=== PATIENT | male | born 1930 | race Caucasian/White ===

== ENCOUNTER 2018-08-10 05:45 | Emergency (ER) | payer MEDICARE ==
[~2018-08-10] VITALS: Ht 177.8 cm; Wt 65.4 kg
[~2018-08-10 05:45] MED LIST: ASPI-1265 PO; CARV6.253 PO; LEVO150T73 PO; MELO-82 PO; OMEP-84 PO; SIMV10TA2 PO; ZES10T PO
[2018-08-10] MEDS ORDERED: HYDROcodone/acetaminophen 5mg/325mg tablet PO ONE (06:30)
[2018-08-10 07:24] LABS: HEMATOCRIT 36.7 % (42.0-52.0); HEMOGLOBIN 12.1 g/dl (14.0-17.9); MEAN CORPUSCULAR HEMOGLOBIN 30.7 PG (27.0-31.0); MEAN CORPUSCULAR HGB CONC 33.1 % (33.0-36.5); MEAN CORPUSCULAR VOLUME 92.8 FL (78-98); MEAN PLATELET VOLUME 9.5 FL (7.4-10.4); PLATELET COUNT 107 X10'3 (140-440); RED BLOOD COUNT 3.95 X10'6 (4.70-6.10); RED CELL DISTRIBUTION WIDTH 18.2 % (11.5-14.5); WHITE BLOOD COUNT 9.9 X10'3 (4.5-11.0)
[2018-08-10 07:39] LABS: ALANINE AMINOTRANSFERASE 18 U/L (12-78); ALBUMIN 3.6 G/DL (3.4-5.0); ALBUMIN/GLOBULIN RATIO 1.4 (1.1-1.5); ALKALINE PHOSPHATASE 57 IU/L (46-116); ANION GAP 8 (8-16); ASPARTATE AMINO TRANSFERASE 21 U/L (10-37); BILIRUBIN,TOTAL 1.2 MG/DL (0.1-1.0); BLOOD UREA NITROGEN 31 MG/DL (7-18); C-REACTIVE PROTEIN 1.24 MG/DL (0.0-0.5); CALCIUM 8.5 MG/DL (8.5-10.1); CHLORIDE 105 MMOL/L (99-107); CREATININE 1.24 MG/DL (0.60-1.10); GLUCOSE 112 MG/DL (70-104); POTASSIUM 4.5 MMOL/L (3.5-5.1); SODIUM 138 MMOL/L (135-145); TOTAL CARBON DIOXIDE 25.3 MMOL/L (24-32); TOTAL PROTEIN 6.1 G/DL (6.4-8.2); eGFR 55 ML/MIN
[2018-08-10 07:45] LABS: ANISOCYTOSIS 2+; LARGE PLATELETS FEW; PLATELET ESTIMATE DECREASED; TOTAL CELLS COUNTED 100
[2018-08-10] MEDS ORDERED: LIDOcaine 1% w/epiNEPHrine 1:200,000 30ml vial IJ ONE (08:40)
[2018-08-10 09:30] VITALS: BP 119/53
[2018-08-10 09:56] LABS: GLUCOSE,SYNOVIAL FLUID 0 MG/DL
[2018-08-10 10:17] LABS: APPEARANCE,SYNOVIAL FLUID CLOUDY; COLOR,SYNOVIAL FLUID YELLOW; LYMPHOCYTES,SYNOVIAL FLUID 5 % (0-75); NEUTROPHILS,SYNOVIAL FLUID 95 % (0-25); SYN WBC 36000 /CU MM (0-200)
[2018-08-10 10:19] LABS: SYNOVIAL FLUID CRYSTALS QT FEW
[2018-08-10] MEDS ORDERED: dexamethasone sod phosphate 10mg/ml inj IV STA (10:26)
[2018-08-10] MEDS ORDERED: HYDR-4383 PO (10:28)
[2018-08-10] MEDS ORDERED: ketorolac trometh. 30mg/ml inj. IV ONE (10:30)
[2018-08-10 12:21] LABS: SYN RBC 2250 /CU MM (0)
[2018-08-11] MEDS ORDERED: IBRU140T PO (16:22)
== END 2018-08-10 18:07 | disposition home or self-care (01) ==
LOC: ER 05:46
DX: M10.061 Idiopathic gout, right knee (principal); I10 Essential (primary) hypertension; Z91.018 Allergy to other foods; Z79.82 Long term (current) use of aspirin; Z79.899 Other long term (current) drug therapy
CPT/HCPCS: 20610; 36415; 73564; 80053; 82945; 84157; 84550; 85025; 85651; 86140; 87070; 87077; 87186; 89051; 89060; 96374; 96375; 99284; J1100; J1885

== ENCOUNTER 2018-08-11 09:57 | Inpatient (IN) | payer MEDICARE ==
[2018-08-11] VITALS (7 sets, daily range): BP systolic 103–132; BP diastolic 52–75
[~2018-08-11] VITALS: Ht 177.8 cm; Wt 65.4 kg
[~2018-08-11 09:57] MED LIST changes: +HYDR-4383 PO
[2018-08-11] MEDS ORDERED: LIDOcaine 1% 30ml preserv. free vial IJ STA (11:37)
[2018-08-11 13:40] LABS: GLUCOSE,SYNOVIAL FLUID 2 MG/DL; TOTAL PROTEIN,SYNOVIAL FLUID 4.5 GM/DL
[2018-08-11 13:45] LABS: SYNOVIAL FLUID CRYSTALS QT MODERATE
[2018-08-11] MEDS ORDERED: normal saline 1000ml 1,000 ML IV ONE (14:33)
[2018-08-11 14:35] LABS: APPEARANCE,SYNOVIAL FLUID CLOUDY; COLOR,SYNOVIAL FLUID YELLOW; SYN RBC 3500 /CU MM (0); SYN WBC 106500 /CU MM (0-200)
[2018-08-11] MEDS ORDERED: ceFAZolin 1GM/D5W- ADD-VANTAGE 50 ML IV ONE (14:35)
[2018-08-11] MEDS ORDERED: vancomycin/NS 1 GM ADD-VANTAGE 250 ML X 1 DOSE IV ONE (14:45)
[2018-08-11] MEDS ORDERED: morphine 2 MG/ML inj. syringe IV PRN ×2 (14:50)
[2018-08-11] MEDS ORDERED: acetaminophen 325mg tablet PO PRN (14:50)
[2018-08-11] MEDS ORDERED: ondansetron/PF 4mg/2ml inj IV PRN ×2 (14:50→21:00)
[2018-08-11] MEDS ORDERED: mag hydrox/Alum hydrox/simeth 30ml oral suspension PO PRN (14:50)
[2018-08-11] MEDS ORDERED: HYDROcodone/acetaminophen 5mg/325mg tablet PO PRN (14:50)
[2018-08-11] MEDS ORDERED: magnesium hydroxide 30ml (MOM) UD suspension PO PRN (14:50)
[2018-08-11 15:17] LABS: BASOPHILS # (AUTO) 0.2 X10'3 (0-0.2); BASOPHILS % (AUTO) 0.9 % (0-1); EOSINOPHILS % (AUTO) 0 % (0-6); HEMATOCRIT 34.9 % (42.0-52.0); HEMOGLOBIN 12.2 g/dl (14.0-17.9); LYMPHOCYTES # (AUTO) 1.2 X10'3 (1.1-4.8); LYMPHOCYTES % (AUTO) 5.6 % (21-51); MEAN CORPUSCULAR HEMOGLOBIN 32.6 PG (27.0-31.0); MEAN CORPUSCULAR HGB CONC 35.1 % (33.0-36.5); MONOCYTES % (AUTO) 8.9 % (2-12); NEUTROPHILS # (AUTO) 18.8 X10'3 (1.8-7.7); NEUTROPHILS % (AUTO) 84.6 % (42-75); PLATELET COUNT 87 X10'3 (140-440); RED BLOOD COUNT 3.75 X10'6 (4.70-6.10); RED CELL DISTRIBUTION WIDTH 17.3 % (11.5-14.5); WHITE BLOOD COUNT 22.2 X10'3 (4.5-11.0)
[2018-08-11 15:21] LABS: ALANINE AMINOTRANSFERASE 13 U/L (12-78); ALKALINE PHOSPHATASE 51 IU/L (46-116); ANION GAP 14 (8-16); ASPARTATE AMINO TRANSFERASE 9 U/L (10-37); BILIRUBIN,TOTAL 1.1 MG/DL (0.1-1.0); BLOOD UREA NITROGEN 43 MG/DL (7-18); BUN/CREATININE RATIO 26.1 (5.4-32.0); CALCIUM 8.3 MG/DL (8.5-10.1); CHLORIDE 101 MMOL/L (99-107); CREATININE 1.65 MG/DL (0.60-1.10); GLUCOSE 95 MG/DL (70-104); POTASSIUM 4.4 MMOL/L (3.5-5.1); SODIUM 136 MMOL/L (135-145); TOTAL PROTEIN 6.1 G/DL (6.4-8.2); eGFR 40 ML/MIN
[2018-08-11 15:38] LABS: TOTAL CELLS COUNTED 100
[2018-08-11 15:39] LABS: ANISOCYTOSIS 1+; PLATELET ESTIMATE DECREASED
[2018-08-11 15:40] LABS: LARGE PLATELETS FEW
[2018-08-11] MEDS ORDERED: normal saline 1000ML IV soln IV ONE (15:45)
[2018-08-11] MEDS ORDERED: ROPIVAcaine 0.5% (5mg/ml) 30ml vial ONE (16:21)
[2018-08-11] MEDS ORDERED: IBRU140T PO (16:22)
[2018-08-11 16:48] LABS: INR 1.1 INR; PROTHROMBIN TIME 11.1 SECONDS (9.0-12.0)
[2018-08-11] MEDS ORDERED: ringers solution, lacted 1,000 ML IV SCH (20:58)
[2018-08-11] MEDS ORDERED: morphine 4 MG/ML inj SYRINge IV PRN ×2 (21:00)
[2018-08-11] MEDS ORDERED: meperidine/PF 25mg/ml syringe IV PRN ×3 (21:00)
[2018-08-11] MEDS ORDERED: proCHLORperazine 10 MG/2 ml inj IV PRN (21:00)
[2018-08-11] MEDS ORDERED: sevoflurane 250ml liquid IH ONE (21:01)
[2018-08-11] MEDS ORDERED: fentaNYL/PF 50MCG/1 ML 2ML syringe ONE (21:05)
[2018-08-11] MEDS ORDERED: propofol inj 20 ML IV ONE (21:05)
[2018-08-12] VITALS (12 sets, daily range): BP systolic 94–125; BP diastolic 46–69
[2018-08-12] MEDS: dextrose 5%-1/2 normal saline 1,000 ML IV SCH ×2 (04:16→13:18)
[2018-08-12 06:08] LABS: ALBUMIN 2.2 G/DL (3.4-5.0); ANION GAP 11 (8-16); BLOOD UREA NITROGEN 34 MG/DL (7-18); BUN/CREATININE RATIO 27.4 (5.4-32.0); CALCIUM 7.3 MG/DL (8.5-10.1); CHLORIDE 105 MMOL/L (99-107); CREATININE 1.24 MG/DL (0.60-1.10); GLUCOSE 106 MG/DL (70-104); POTASSIUM 4.1 MMOL/L (3.5-5.1); SODIUM 137 MMOL/L (135-145); TOTAL CARBON DIOXIDE 21.4 MMOL/L (24-32); eGFR 55 ML/MIN
[2018-08-12 06:13] LABS: BASOPHILS % (AUTO) 0 % (0-1); EOSINOPHILS # (AUTO) 0.1 X10'3 (0-0.9); EOSINOPHILS % (AUTO) 0.7 % (0-6); HEMATOCRIT 30.4 % (42.0-52.0); HEMOGLOBIN 10.1 g/dl (14.0-17.9); LYMPHOCYTES # (AUTO) 1.1 X10'3 (1.1-4.8); LYMPHOCYTES % (AUTO) 8.7 % (21-51); MEAN CORPUSCULAR HEMOGLOBIN 31.1 PG (27.0-31.0); MEAN CORPUSCULAR HGB CONC 33.2 % (33.0-36.5); MEAN CORPUSCULAR VOLUME 93.7 FL (78-98); MEAN PLATELET VOLUME 10.3 FL (7.4-10.4); MONOCYTES # (AUTO) 1.5 X10'3 (0-0.9); MONOCYTES % (AUTO) 12.4 % (2-12); NEUTROPHILS # (AUTO) 9.6 X10'3 (1.8-7.7); NEUTROPHILS % (AUTO) 78.2 % (42-75); PLATELET COUNT 81 X10'3 (140-440); RED BLOOD COUNT 3.24 X10'6 (4.70-6.10); RED CELL DISTRIBUTION WIDTH 18.2 % (11.5-14.5); WHITE BLOOD COUNT 12.3 X10'3 (4.5-11.0)
[2018-08-12] MEDS: calcium carbonate 500mg chew tablet PO PRN ×3 (08:52→20:43)
[2018-08-12] MEDS: HYDROcodone/acetaminophen 10/325mg tab PO PRN (13:18)
[2018-08-12] MEDS: CefTRIAXone 2gm/D5W 50ml 50 ML IV SCH (13:22)
[2018-08-12] MEDS ORDERED: vancomycin/NS 1 GM ADD-VANTAGE 250 ML IV SCH (16:00)
[2018-08-12] MEDS: atorvastatin 10mg tablet PO SCH (20:33)
[2018-08-13] MEDS: dextrose 5%-1/2 normal saline 1,000 ML IV SCH ×4 (00:10→22:47)
[2018-08-13] MEDS: HYDROcodone/acetaminophen 10/325mg tab PO PRN ×3 (05:05→15:59)
[2018-08-13 06:00] VITALS: BP 122/66
[2018-08-13 06:45] LABS: BASOPHILS % (AUTO) 0.1 % (0-1); EOSINOPHILS # (AUTO) 0.1 X10'3 (0-0.9); HEMATOCRIT 30.9 % (42.0-52.0); HEMOGLOBIN 10.5 g/dl (14.0-17.9); LYMPHOCYTES % (AUTO) 13.6 % (21-51); MEAN CORPUSCULAR HEMOGLOBIN 31.1 PG (27.0-31.0); MEAN CORPUSCULAR HGB CONC 33.9 % (33.0-36.5); MEAN CORPUSCULAR VOLUME 91.7 FL (78-98); MEAN PLATELET VOLUME 10.2 FL (7.4-10.4); MONOCYTES # (AUTO) 0.8 X10'3 (0-0.9); MONOCYTES % (AUTO) 10.7 % (2-12); NEUTROPHILS # (AUTO) 5.3 X10'3 (1.8-7.7); NEUTROPHILS % (AUTO) 74.6 % (42-75); PLATELET COUNT 82 X10'3 (140-440); RED BLOOD COUNT 3.37 X10'6 (4.70-6.10); RED CELL DISTRIBUTION WIDTH 18.2 % (11.5-14.5); WHITE BLOOD COUNT 7.1 X10'3 (4.5-11.0)
[2018-08-13 07:03] LABS: ANION GAP 10 (8-16); BLOOD UREA NITROGEN 25 MG/DL (7-18); BUN/CREATININE RATIO 24.8 (5.4-32.0); CALCIUM 7.6 MG/DL (8.5-10.1); CHLORIDE 103 MMOL/L (99-107); CREATININE 1.01 MG/DL (0.60-1.10); GLUCOSE 112 MG/DL (70-104); POTASSIUM 3.8 MMOL/L (3.5-5.1); SODIUM 135 MMOL/L (135-145); TOTAL CARBON DIOXIDE 21.6 MMOL/L (24-32); eGFR 70 ML/MIN
[2018-08-13] MEDS ORDERED: LEVOTHYROXINE 75 MCG PO SCH (08:00)
[2018-08-13] MEDS ORDERED: non-formulary drug (Omeprazole* (Prilosec*) 1 CAP) PO SCH (08:00)
[2018-08-13] MEDS: naproxen sodium 220mg tablet PO SCH (08:00)
[2018-08-13] MEDS: pantoprazole 40mg Tablet.DR PO SCH (08:21)
[2018-08-13] MEDS: levoTHYROXINE 75mcg tablet PO SCH (08:21)
[2018-08-13] MEDS: lisinopril 5mg tablet PO SCH (08:21)
[2018-08-13] MEDS: CefTRIAXone 2gm/D5W 50ml 50 ML IV SCH (08:21)
[2018-08-13 10:00] VITALS: BP 130/57
[2018-08-13] MEDS: IBRUTINIB 140 MG PO SCH (12:28)
[2018-08-13 18:00] VITALS: BP 147/47
[2018-08-13] MEDS ORDERED: aspirin 81mg tab.chew PO ONE (20:00)
[2018-08-13] MEDS: lactobacillus rhamnosus 10,000 MMU CELLS/CAPSULE PO SCH (20:11)
[2018-08-13] MEDS: atorvastatin 10mg tablet PO SCH (20:11)
[2018-08-13 22:00] VITALS: BP 97/56
[2018-08-14] MEDS: HYDROcodone/acetaminophen 10/325mg tab PO PRN (05:23)
[2018-08-14 06:00] VITALS: BP 130/69
[2018-08-14] MEDS: naproxen sodium 220mg tablet PO SCH (08:00)
[2018-08-14] MEDS ORDERED: aspirin 81mg tab.chew PO SCH (08:30)
[2018-08-14] MEDS: pantoprazole 40mg Tablet.DR PO SCH (09:13)
[2018-08-14] MEDS: levoTHYROXINE 75mcg tablet PO SCH (09:13)
[2018-08-14] MEDS: CefTRIAXone 2gm/D5W 50ml 50 ML IV SCH (09:14)
[2018-08-14] MEDS: lactobacillus rhamnosus 10,000 MMU CELLS/CAPSULE PO SCH (09:15)
[2018-08-14] MEDS: IBRUTINIB 140 MG PO SCH (09:15)
[2018-08-14] MEDS: lisinopril 5mg tablet PO SCH (09:18)
[2018-08-14] MEDS ORDERED: VANCOMYCIN LEVEL IV ONE (15:30)
[2018-08-16] MEDS ORDERED: aspirin 81mg tab.chew PO SCH (08:00)
== END 2018-08-14 13:41 | DRG 871 ==
LOC: ER 09:58 → ED HOLD 14:48 → ORTHO 4S 17:25
PROVIDERS: ADMIT Internal Medicine; ATTEND Family Medicine
PROC: 0S9C3ZZ Drainage of Right Knee Joint, Percutaneous Approach (ICD-10-PCS; 2018-08-11)
PROC: 0S9C40Z Drainage of Right Knee Joint with Drainage Device, Percutaneous Endoscopic Approach (ICD-10-PCS; principal; 2018-08-11 21:01)
PROC: 02HV33Z Insertion of Infusion Device into Superior Vena Cava, Percutaneous Approach (ICD-10-PCS; 2018-08-13)
PROC: B548ZZA Ultrasonography of Superior Vena Cava, Guidance (ICD-10-PCS; 2018-08-13)
DX: A41.9 Sepsis, unspecified organism (principal); N17.0 Acute kidney failure with tubular necrosis; C91.10 Chronic lymphocytic leukemia of B-cell type not having achieved remission; M00.161 Pneumococcal arthritis, right knee; E03.9 Hypothyroidism, unspecified; I12.9 Hypertensive chronic kidney disease with stage 1 through stage 4 chronic kidney disease, or unspecified chronic kidney disease; N18.3 Chronic kidney disease, stage 3 (moderate); B95.3 Streptococcus pneumoniae as the cause of diseases classified elsewhere; E78.5 Hyperlipidemia, unspecified; K21.9 Gastro-esophageal reflux disease without esophagitis; M10.9 Gout, unspecified; R01.1 Cardiac murmur, unspecified; Z88.8 Allergy status to other drugs, medicaments and biological substances; Z79.899 Other long term (current) drug therapy; Z79.82 Long term (current) use of aspirin
CPT/HCPCS: 20610; 36415; 36569; 76937; 80048; 80053; 82945; 83605; 84145; 84157; 84443; 85025; 85610; 85651; 87040; 87070; 89051; 89060; 93005; 97110; 97116; 97162; 97530; 99285; A6449; A7000; G0378; J0690; J0696; J2270; J2704; J2795; J3010; J3370; J3490; J7030; J7120

== ENCOUNTER → 2018-08-25 | Outpatient (CLI) | payer MEDICARE ==
[~2018-08-25] MED LIST changes: -CARV6.253 PO; -HYDR-4383 PO; +IBRU140T PO
[2018-08-25 13:12] VITALS: BP 119/72
== END | disposition home or self-care (01) ==
LOC: ORTHO 13:03
PROVIDERS: ATTEND Nurse Practitioner Family
DX: M00.261 Other streptococcal arthritis, right knee (principal); B95.4 Other streptococcus as the cause of diseases classified elsewhere; M25.461 Effusion, right knee; M85.861 Other specified disorders of bone density and structure, right lower leg; I10 Essential (primary) hypertension; Z96.612 Presence of left artificial shoulder joint; Z79.82 Long term (current) use of aspirin; Z79.899 Other long term (current) drug therapy
CPT/HCPCS: 73560; 99214

== ENCOUNTER 2018-09-02 11:40 | Outpatient (CLI) | payer MEDICARE ==
[2018-09-02 11:54] VITALS: BP 105/68
== END 2018-09-02 12:44 | disposition home or self-care (01) ==
LOC: ORTHO 11:40
PROVIDERS: ATTEND Nurse Practitioner Family
DX: M00.261 Other streptococcal arthritis, right knee (principal); M25.461 Effusion, right knee; I10 Essential (primary) hypertension; Z98.890 Other specified postprocedural states; Z88.8 Allergy status to other drugs, medicaments and biological substances
CPT/HCPCS: 73560; 99213

== ENCOUNTER 2018-09-29 11:11 | Outpatient (CLI) | payer MEDICARE ==
[2018-09-29 11:09] VITALS: BP 92/52
== END 2018-09-29 11:44 | disposition home or self-care (01) ==
LOC: ORTHO 11:11
PROVIDERS: ATTEND Nurse Practitioner Family
DX: M00.261 Other streptococcal arthritis, right knee (principal); M17.11 Unilateral primary osteoarthritis, right knee; M25.461 Effusion, right knee; I10 Essential (primary) hypertension; Z79.82 Long term (current) use of aspirin; Z79.899 Other long term (current) drug therapy; Z91.018 Allergy to other foods
CPT/HCPCS: 73560; 99213

== ENCOUNTER 2018-10-21 11:23 | Outpatient (CLI) | payer MEDICARE ==
[2018-10-21 11:27] VITALS: BP 109/80
== END 2018-10-21 13:00 | disposition home or self-care (01) ==
LOC: ORTHO 11:23
PROVIDERS: ATTEND Nurse Practitioner Family
DX: M00.261 Other streptococcal arthritis, right knee (principal); I10 Essential (primary) hypertension; Z98.890 Other specified postprocedural states; Z96.612 Presence of left artificial shoulder joint; Z88.8 Allergy status to other drugs, medicaments and biological substances
CPT/HCPCS: 73560; 99213

== ENCOUNTER 2018-12-02 11:36 | Outpatient (CLI) | payer MEDICARE ==
[2018-12-02 11:44] VITALS: BP 119/69
== END 2018-12-02 12:36 | disposition home or self-care (01) ==
LOC: ORTHO 11:36
PROVIDERS: ATTEND Orthopaedic Surgery
DX: M17.11 Unilateral primary osteoarthritis, right knee (principal); M25.861 Other specified joint disorders, right knee; I10 Essential (primary) hypertension; Z96.612 Presence of left artificial shoulder joint; Z91.018 Allergy to other foods; Z79.82 Long term (current) use of aspirin; Z79.899 Other long term (current) drug therapy
CPT/HCPCS: 73564; 99213

== ENCOUNTER 2019-04-13 12:39 | Outpatient (CLI) | payer MEDICARE | END 2019-04-13 23:59 | disposition home or self-care (01) | LOC: VAS 12:39 | PROVIDERS: ATTEND Family Medicine | DX: S50.12XA Contusion of left forearm, initial encounter (principal); I11.0 Hypertensive heart disease with heart failure; I50.9 Heart failure, unspecified; Z96.611 Presence of right artificial shoulder joint; Z96.612 Presence of left artificial shoulder joint; X58.XXXA Exposure to other specified factors, initial encounter; Y93.89 Activity, other specified; Y92.89 Other specified places as the place of occurrence of the external cause; Y99.8 Other external cause status | CPT/HCPCS: 71046; 93971 ==

== ENCOUNTER 2019-04-16 09:10 | Emergency (ER) | payer MEDICARE ==
[~2019-04-16] VITALS: Ht 177.8 cm; Wt 54.0 kg
[2019-04-16 10:02] LABS: BASOPHILS % (AUTO) 0.3 % (0-1); LYMPHOCYTES # (AUTO) 1.1 X10'3 (1.1-4.8); MEAN CORPUSCULAR HGB CONC 32.9 g/dL (33.0-36.5); WHITE BLOOD COUNT 6.6 X10'3 (4.5-11.0)
[2019-04-16 10:04] LABS: EOSINOPHILS % (AUTO) 0.2 % (0-6); HEMATOCRIT 32.8 % (42.0-52.0); HEMOGLOBIN 10.8 g/dl (14.0-17.9); LYMPHOCYTES % (AUTO) 16.6 % (21-51); MEAN CORPUSCULAR HEMOGLOBIN 32.1 PG (27.0-31.0); MEAN CORPUSCULAR VOLUME 97.6 FL (78-98); MEAN PLATELET VOLUME 9.2 FL (7.4-10.4); MONOCYTES # (AUTO) 1.5 X10'3 (0-0.9); MONOCYTES % (AUTO) 22.4 % (2-12); NEUTROPHILS % (AUTO) 60.5 % (42-75); PLATELET COUNT 120 X10'3 (140-440); RED BLOOD COUNT 3.36 X10'6 (4.70-6.10)
[2019-04-16 10:16] LABS: ALANINE AMINOTRANSFERASE 73 U/L (12-78); ALBUMIN 3.8 G/DL (3.4-5.0); ALBUMIN/GLOBULIN RATIO 1.5 (1.1-1.5); ALKALINE PHOSPHATASE 90 IU/L (46-116); ANION GAP 10 (8-16); ASPARTATE AMINO TRANSFERASE 29 U/L (10-37); BILIRUBIN,TOTAL 0.9 MG/DL (0.1-1.0); BLOOD UREA NITROGEN 28 MG/DL (7-18); BUN/CREATININE RATIO 16.4 (5.4-32.0); CALCIUM 8.4 MG/DL (8.5-10.1); CHLORIDE 107 MMOL/L (99-107); CREATININE 1.71 MG/DL (0.60-1.10); GLUCOSE 96 MG/DL (70-104); POTASSIUM 4.5 MMOL/L (3.5-5.1); SODIUM 141 MMOL/L (135-145); TOTAL CARBON DIOXIDE 24.4 MMOL/L (24-32); TOTAL PROTEIN 6.3 G/DL (6.4-8.2); eGFR 38 ML/MIN
[2019-04-16 10:47] LABS: LARGE PLATELETS FEW; PLATELET ESTIMATE DECREASED
[2019-04-16 10:49] LABS: OCCULT BLOOD STOOL NEGATIVE (Neg)
[2019-04-16 11:25] VITALS: BP 133/92
== END 2019-04-16 11:12 | disposition home or self-care (01) ==
LOC: ER 09:11
DX: K92.1 Melena (principal); I12.9 Hypertensive chronic kidney disease with stage 1 through stage 4 chronic kidney disease, or unspecified chronic kidney disease; N18.3 Chronic kidney disease, stage 3 (moderate); D63.1 Anemia in chronic kidney disease; Z88.8 Allergy status to other drugs, medicaments and biological substances; Z79.82 Long term (current) use of aspirin; Z79.899 Other long term (current) drug therapy; Z98.890 Other specified postprocedural states
CPT/HCPCS: 36415; 80053; 82272; 85025; 85610; 93005; 99284

== ENCOUNTER 2019-04-21 05:20 | Inpatient (IN) | payer MEDICARE ==
[~2019-04-21] VITALS: Ht 177.8 cm; Wt 67.8 kg
[2019-04-21] VITALS (7 sets, daily range): BP systolic 105–131; BP diastolic 64–81
[2019-04-21] MEDS ORDERED: SUCR1TAB PO (05:56)
[2019-04-21] MEDS ORDERED: FURO20TA4 PO (05:56)
[2019-04-21] MEDS ORDERED: CYCL1DRO2 EACHEYE (05:56)
--- NOTE | 2019-04-21 06:04 | NUR ---
MD AT BEDSIDE FOR EXAM
[2019-04-21 06:07] LABS: ALANINE AMINOTRANSFERASE 110 U/L (12-78); ALBUMIN 3.3 G/DL (3.4-5.0); ALBUMIN/GLOBULIN RATIO 1.4 (1.1-1.5); ALKALINE PHOSPHATASE 74 IU/L (46-116); ANION GAP 12 (8-16); ASPARTATE AMINO TRANSFERASE 123 U/L (10-37); BILIRUBIN,TOTAL 0.8 MG/DL (0.1-1.0); BLOOD UREA NITROGEN 30 MG/DL (7-18); CALCIUM 7.7 MG/DL (8.5-10.1); CHLORIDE 105 MMOL/L (99-107); CREATININE 2.14 MG/DL (0.60-1.10); GLUCOSE 112 MG/DL (70-104); POTASSIUM 4.6 MMOL/L (3.5-5.1); SODIUM 140 MMOL/L (135-145); TOTAL CARBON DIOXIDE 23.4 MMOL/L (24-32); TOTAL PROTEIN 5.7 G/DL (6.4-8.2); eGFR 29 ML/MIN
[2019-04-21 06:10] LABS: BASOPHILS % (AUTO) 0.2 % (0-1); EOSINOPHILS % (AUTO) 0.2 % (0-6); HEMATOCRIT 29.4 % (42.0-52.0); HEMOGLOBIN 9.8 g/dl (14.0-17.9); LYMPHOCYTES # (AUTO) 0.7 X10'3 (1.1-4.8); LYMPHOCYTES % (AUTO) 9.6 % (21-51); MEAN CORPUSCULAR HEMOGLOBIN 32.4 PG (27.0-31.0); MEAN CORPUSCULAR HGB CONC 33.4 g/dL (33.0-36.5); MEAN CORPUSCULAR VOLUME 96.9 FL (78-98); MONOCYTES # (AUTO) 0.9 X10'3 (0-0.9); MONOCYTES % (AUTO) 12.4 % (2-12); NEUTROPHILS # (AUTO) 5.8 X10'3 (1.8-7.7); NEUTROPHILS % (AUTO) 77.6 % (42-75); PLATELET COUNT 88 X10'3 (140-440); RED BLOOD COUNT 3.03 X10'6 (4.70-6.10); RED CELL DISTRIBUTION WIDTH 16.5 % (11.5-14.5); WHITE BLOOD COUNT 7.5 X10'3 (4.5-11.0)
[2019-04-21] MEDS ORDERED: normal saline 1000ML IV soln IVB ONE (06:10)
[2019-04-21 06:18] LABS: PARTIAL THROMBOPLASTIN TIME 32 SECONDS (22-32)
[2019-04-21 06:37] LABS: MAGNESIUM 2.2 MG/DL (1.5-2.4)
[2019-04-21 07:00] LABS: GIANT PLATELET FEW; LARGE PLATELETS FEW; PLATELET ESTIMATE DECREASED
[2019-04-21] MEDS ORDERED: aspirin 325mg tablet PO ONE (07:35)
[2019-04-21] MEDS ORDERED: magnesium Cl slow-release 64mg tablet PO PRN (09:20)
[2019-04-21] MEDS ORDERED: morphine 2 MG/ML inj. syringe IV PRN ×2 (09:20)
[2019-04-21] MEDS ORDERED: acetaminophen 650mg rectal suppository RC PRN (09:20)
[2019-04-21] MEDS ORDERED: potassium CL 10mEq/100ml bag 100 ML IV PRN ×2 (09:20)
[2019-04-21] MEDS ORDERED: bisacodyl 10mg suppository rectal RC PRN (09:20)
[2019-04-21] MEDS ORDERED: acetaminophen 325mg tablet PO PRN ×2 (09:20)
[2019-04-21] MEDS ORDERED: ondansetron/PF 4mg/2ml inj IV PRN (09:20)
[2019-04-21] MEDS ORDERED: magnesium hydroxide 30ml (MOM) UD suspension PO PRN (09:20)
[2019-04-21] MEDS ORDERED: potassium Cl 20 mEq SR tablet PO PRN ×2 (09:20)
[2019-04-21] MEDS ORDERED: magnesium 2GM in 50ml NS 50 ML IV PRN (09:20)
[2019-04-21] MEDS ORDERED: HYDROcodone/acetaminophen 10/325mg tab PO PRN (09:20)
[2019-04-21] MEDS ORDERED: diphenhydrAMINE 25mg capsule PO PRN (09:20)
[2019-04-21] MEDS ORDERED: magnesium 4gm in 100ml NS 100 ML IV PRN (09:20)
[2019-04-21] MEDS: K and/or MAG REPLACEMENT MC SCH (09:20)
[2019-04-21] MEDS ORDERED: mag hydrox/Alum hydrox/simeth 30ml oral suspension PO PRN (09:20)
[2019-04-21] MEDS ORDERED: HYDROcodone/acetaminophen 5mg/325mg tablet PO PRN (09:20)
--- NOTE | 2019-04-21 10:30 | NUR ---
Received report from Sonya in the ER. Oriented pt and family to room, unit, and plan of care. Call light within reach. Denies pain or needs at this time.
--- NOTE | 2019-04-21 11:11 | NUR ---
Dr Zazueta at bedside. Informed of increasing troponins (0.09, 0.48) and echo results.
[2019-04-21] MEDS: normal saline 1000ml 1,000 ML IV SCH (11:34)
[2019-04-21] MEDS: sucralfate 1 gm tablet PO SCH ×3 (12:49→20:38)
--- NOTE | 2019-04-21 13:00 | NUR ---
MRI screening form faxed to MRI.
--- NOTE | 2019-04-21 16:08 | NUR ---
Paged Dr Zazueta to ask if heparin and aspirin should be given tonight.
[2019-04-21] MEDS ORDERED: LIDOcaine 1% (10mg/ml)w/preservative injection 20ml MDV ONE (16:50)
[2019-04-21] MEDS ORDERED: fentaNYL/PF 50MCG/1 ML 2ML syringe ONE (16:50)
[2019-04-21] MEDS ORDERED: midazolam 2 mg/2 ml injection ONE (16:50)
--- NOTE | 2019-04-21 17:13 | NUR ---
Pt on gurney to go to MRI. fence laborer staff appeared on floor at same time, requesting to take pt to hatchery laborer for pericardiocentesis. Pt taken to hatchery laborer via gurney.
--- NOTE | 2019-04-21 18:00 | NUR ---
Patient in room PCU 3012. I have received report from Lisette FITZGERALD and Courtney FITZGERALD and had the opportunity to ask questions and assume patient care.
--- NOTE | 2019-04-21 18:12 | NUR ---
Problems reprioritized. Patient report given, questions answered & plan of care reviewed with daya.
[2019-04-21] MEDS: heparin, porcine 5000 units/ml vial SQ SCH (20:38)
[2019-04-21] MEDS: cycloSPORINE 0.05% ophthalmic emulsion EACHEYE SCH (20:39)
--- NOTE | 2019-04-21 23:00 | NUR ---
Vital sign machine malfunction, did not record post procedure vitals. Recorded vitals what was available. Patient has been comfortable in bed, no signs of distress, no pain, dressing dry and intact; will continue to monitor.
--- NOTE | 2019-04-22 02:00 | NUR ---
Patient refused orthostatic vital signs stating he wants to sleep and not be bothered.
[2019-04-22 03:00] VITALS: BP 131/81
[2019-04-22 05:30] LABS: BASOPHILS % (AUTO) 0.1 % (0-1); HEMOGLOBIN 11.4 g/dl (14.0-17.9); LYMPHOCYTES # (AUTO) 0.8 X10'3 (1.1-4.8); MEAN CORPUSCULAR HGB CONC 33.7 g/dL (33.0-36.5)
[2019-04-22 05:33] LABS: EOSINOPHILS % (AUTO) 0 % (0-6); HEMATOCRIT 33.8 % (42.0-52.0); LYMPHOCYTES % (AUTO) 8.8 % (21-51); MEAN CORPUSCULAR HEMOGLOBIN 32.4 PG (27.0-31.0); MEAN CORPUSCULAR VOLUME 96.3 FL (78-98); MEAN PLATELET VOLUME 9.9 FL (7.4-10.4); MONOCYTES # (AUTO) 2.5 X10'3 (0-0.9); MONOCYTES % (AUTO) 27.1 % (2-12); NEUTROPHILS # (AUTO) 5.8 X10'3 (1.8-7.7); PLATELET COUNT 102 X10'3 (140-440); RED BLOOD COUNT 3.51 X10'6 (4.70-6.10); RED CELL DISTRIBUTION WIDTH 16.1 % (11.5-14.5); WHITE BLOOD COUNT 9.1 X10'3 (4.5-11.0)
[2019-04-22] MEDS: normal saline 1000ml 1,000 ML IV SCH (05:43)
[2019-04-22 06:00] VITALS: BP 98/60
--- NOTE | 2019-04-22 06:09 | NUR ---
Problems reprioritized. Patient report given, questions answered & plan of care reviewed with Lisette FITZGERALD.
--- NOTE | 2019-04-22 06:12 | NUR ---
Patient in room PCU 3012. I have received report from daya and had the opportunity to ask questions and assume patient care.
[2019-04-22 06:14] LABS: ALANINE AMINOTRANSFERASE 81 U/L (12-78); ALBUMIN 2.9 G/DL (3.4-5.0); ALBUMIN/GLOBULIN RATIO 1.4 (1.1-1.5); ALKALINE PHOSPHATASE 64 IU/L (46-116); ANION GAP 10 (8-16); ASPARTATE AMINO TRANSFERASE 50 U/L (10-37); BILIRUBIN,TOTAL 1.1 MG/DL (0.1-1.0); BLOOD UREA NITROGEN 22 MG/DL (7-18); BUN/CREATININE RATIO 16.2 (5.4-32.0); CALCIUM 7.8 MG/DL (8.5-10.1); CHLORIDE 109 MMOL/L (99-107); CHOL/HDL RATIO 2.3 (0.00-4.99); CHOLESTEROL 65 MG/DL (0-200); CREATININE 1.36 MG/DL (0.60-1.10); GLUCOSE 91 MG/DL (70-104); HDL CHOLESTEROL 28 MG/DL (35-60); LDL CHOLESTEROL 31 MG/DL (50-100); MAGNESIUM 1.9 MG/DL (1.5-2.4); PHOSPHORUS 3.9 MG/DL (2.3-4.5); POTASSIUM 4.5 MMOL/L (3.5-5.1); SODIUM 140 MMOL/L (135-145); TOTAL CARBON DIOXIDE 21.2 MMOL/L (24-32); TRIGLYCERIDES 36 MG/DL (20-135); eGFR 50 ML/MIN
[2019-04-22] MEDS: K and/or MAG REPLACEMENT MC SCH (06:56)
[2019-04-22] MEDS ORDERED: levoTHYROXINE 75mcg tablet PO SCH (07:00)
[2019-04-22] MEDS: cycloSPORINE 0.05% ophthalmic emulsion EACHEYE SCH (07:05)
[2019-04-22] MEDS: sucralfate 1 gm tablet PO SCH ×2 (07:05→12:48)
[2019-04-22] MEDS: heparin, porcine 5000 units/ml vial SQ SCH (07:05)
[2019-04-22 08:00] VITALS: BP_SYST 118; BP_SYST 94; BP_DIAS 70; BP_DIAS 78
[2019-04-22] MEDS ORDERED: atorvastatin 20mg tablet PO SCH (08:00)
[2019-04-22] MEDS ORDERED: IBRUTINIB 140 MG PO SCH (08:00)
--- NOTE | 2019-04-22 10:36 | NUR ---
Problems reprioritized. Patient report given, questions answered & plan of care reviewed with Iesha.
[2019-04-22 11:00] VITALS: BP 101/65
--- NOTE | 2019-04-22 12:04 | NUR ---
Sent to Dr Zazueta PAGER ID: [phone] MESSAGE: RE: [place] [facility] [id number]. Pt's family would like to speak with you. -Iesha [phone]
--- NOTE | 2019-04-22 13:40 | NUR ---
Pt discharged. Tele removed, IV d/c'd, all belongings sent with pt and family. Wheeled down to lobby. Left in private vehicle. Will call Dr Phillips for follow up on Wednesday 04/25 when they open. Has appt with Dr Sen on Friday 04/27, but is going to try to see him Wednesday 04/25.
[2019-04-24 13:06] LABS: PLATELET ESTIMATE DECREASED; TOTAL CELLS COUNTED 100
[2019-04-24 13:07] LABS: ANISOCYTOSIS 1+; BURR CELLS 1+; ELLIPTOCYTES 1+; POLYCHROMASIA 1+
[2019-04-25] MEDS ORDERED: aspirin 81mg tab.chew PO SCH (08:00)
== END 2019-04-22 13:25 | disposition home health service (06) | DRG 280 ==
LOC: ER 05:20 → PCU 3S 09:41
PROVIDERS: ADMIT Family Medicine; ATTEND Family Medicine
PROC: 0W9D3ZZ Drainage of Pericardial Cavity, Percutaneous Approach (ICD-10-PCS; principal; 2019-04-21)
PROC: BW38YZZ Magnetic Resonance Imaging (MRI) of Head using Other Contrast (ICD-10-PCS; 2019-04-22)
DX: I21.A1 Myocardial infarction type 2 (principal); N17.0 Acute kidney failure with tubular necrosis; I31.3 Pericardial effusion (noninflammatory); I42.9 Cardiomyopathy, unspecified; I31.4 Cardiac tamponade; R55 Syncope and collapse; E86.0 Dehydration; I08.0 Rheumatic disorders of both mitral and aortic valves; N18.9 Chronic kidney disease, unspecified; Z96.611 Presence of right artificial shoulder joint; Z96.612 Presence of left artificial shoulder joint; E78.5 Hyperlipidemia, unspecified; E89.0 Postprocedural hypothyroidism; I12.9 Hypertensive chronic kidney disease with stage 1 through stage 4 chronic kidney disease, or unspecified chronic kidney disease; I25.10 Atherosclerotic heart disease of native coronary artery without angina pectoris; I44.7 Left bundle-branch block, unspecified; K21.9 Gastro-esophageal reflux disease without esophagitis; M19.90 Unspecified osteoarthritis, unspecified site; Z66 Do not resuscitate; Z85.72 Personal history of non-Hodgkin lymphomas; Z95.5 Presence of coronary angioplasty implant and graft; Z91.018 Allergy to other foods; Z79.899 Other long term (current) drug therapy; Z79.82 Long term (current) use of aspirin
CPT/HCPCS: 33010; 36415; 70450; 70544; 70551; 71045; 72125; 80053; 80061; 82728; 83036; 83540; 83550; 83735; 84100; 84443; 84484; 85025; 85610; 85730; 87070; 87081; 93005; 93306; 93308; 96360; 96361; 99152; 99153; 99285; A4620; G0378; J1644; J2001; J2250; J3010; J7030

== ENCOUNTER 2019-04-24 11:33 | Emergency (ER) | payer MEDICARE ==
[~2019-04-24] VITALS: Ht 177.8 cm; Wt 65.5 kg
[~2019-04-24 11:33] MED LIST changes: +CYCL1DRO2 EACHEYE; +FURO20TA4 PO; +SUCR1TAB PO
[2019-04-24] MEDS ORDERED: acetaminophen 325mg tablet PO ONE (13:10)
[2019-04-24] MEDS ORDERED: BISA-155 PO (13:55)
[2019-04-24 14:21] VITALS: BP 109/63
[2019-04-25] MEDS ORDERED: SIME80TA16 PO (01:18)
== END 2019-04-24 14:24 | disposition home or self-care (01) ==
LOC: ER 11:33
DX: K59.00 Constipation, unspecified (principal); R14.2 Eructation; I10 Essential (primary) hypertension; C85.90 Non-Hodgkin lymphoma, unspecified, unspecified site; Z98.890 Other specified postprocedural states; Z88.8 Allergy status to other drugs, medicaments and biological substances; Z79.82 Long term (current) use of aspirin; Z79.899 Other long term (current) drug therapy
CPT/HCPCS: 36415; 84484; 99284

== ENCOUNTER 2019-04-24 22:18 | Emergency (ER) | payer MEDICARE ==
[~2019-04-24] VITALS: Ht 177.8 cm; Wt 65.5 kg
[~2019-04-24 22:18] MED LIST changes: +BISA-155 PO; -MELO-82 PO
--- NOTE | 2019-04-24 22:40 | NUR ---
PT REPORTS HE IS HAVING "SOME CHEST PRESSURE" AND UPPER ABDOMINAL PAIN. HE STATES THESE SYMPTOMS ARE SIMILAR TO WHEN HE WAS HERE A FEW DAYS AGO AND ENDED UP GETTING ADMITTED AND HAD PERICARDIAL EFFUSION AND 1.5 LITERS REMOVED VIA PERICARDIOCENTISIS BY DR. GOLDSTEIN. DR. LUJAN NITIFIED OF PT AND THAT EKG ORDERED. PT WITH HIS NEPHEW, CLAUDIA, AT BEDSIDE. PLACED ON 2 LITERS NC SATS 90%.
[2019-04-24] MEDS ORDERED: simethicone 80mg chew tab PO ONE (23:10)
--- NOTE | 2019-04-24 23:56 | NUR ---
Patient going to xray
[2019-04-25] MEDS ORDERED: magnesium citrate 296ml oral solution PO ONE (01:15)
[2019-04-25] MEDS ORDERED: SIME80TA16 PO (01:18)
[2019-04-25 01:32] VITALS: BP 99/61
== END 2019-04-25 01:36 | disposition home or self-care (01) ==
LOC: ER 22:18
DX: R14.2 Eructation (principal); K59.00 Constipation, unspecified; I10 Essential (primary) hypertension; C85.90 Non-Hodgkin lymphoma, unspecified, unspecified site; Z98.890 Other specified postprocedural states; Z88.8 Allergy status to other drugs, medicaments and biological substances; Z79.82 Long term (current) use of aspirin; Z79.899 Other long term (current) drug therapy
CPT/HCPCS: 74021; 88108; 88305; 93005; 99284

== ENCOUNTER 2019-04-25 23:14 | Inpatient (IN) | payer MEDICARE ==
[~2019-04-25] VITALS: Ht 177.8 cm; Wt 64.5 kg
[~2019-04-25 23:14] MED LIST changes: +SIME80TA16 PO
[2019-04-26] VITALS (8 sets, daily range): BP systolic 82–142; BP diastolic 51–87
--- NOTE | 2019-04-26 00:30 | NUR ---
xray at bedside
[2019-04-26 01:08] LABS: BASOPHILS % (AUTO) 0.2 % (0-1); EOSINOPHILS % (AUTO) 0.2 % (0-6); HEMATOCRIT 30.5 % (42.0-52.0); HEMOGLOBIN 10.2 g/dl (14.0-17.9); LYMPHOCYTES # (AUTO) 1.3 X10'3 (1.1-4.8); LYMPHOCYTES % (AUTO) 16.4 % (21-51); MEAN CORPUSCULAR HEMOGLOBIN 31.8 PG (27.0-31.0); MEAN CORPUSCULAR HGB CONC 33.3 g/dL (33.0-36.5); MEAN CORPUSCULAR VOLUME 95.4 FL (78-98); MEAN PLATELET VOLUME 9.8 FL (7.4-10.4); NEUTROPHILS # (AUTO) 4.6 X10'3 (1.8-7.7); NEUTROPHILS % (AUTO) 58.2 % (42-75); PLATELET COUNT 104 X10'3 (140-440); RED CELL DISTRIBUTION WIDTH 16.4 % (11.5-14.5); WHITE BLOOD COUNT 7.9 X10'3 (4.5-11.0)
[2019-04-26 01:25] LABS: ALANINE AMINOTRANSFERASE 54 U/L (12-78); ALBUMIN 2.7 G/DL (3.4-5.0); ALBUMIN/GLOBULIN RATIO 0.9 (1.1-1.5); ALKALINE PHOSPHATASE 65 IU/L (46-116); ANION GAP 9 (8-16); ASPARTATE AMINO TRANSFERASE 46 U/L (10-37); BILIRUBIN,TOTAL 0.7 MG/DL (0.1-1.0); BLOOD UREA NITROGEN 31 MG/DL (7-18); BUN/CREATININE RATIO 16.4 (5.4-32.0); CALCIUM 7.9 MG/DL (8.5-10.1); CHLORIDE 103 MMOL/L (99-107); CREATININE 1.89 MG/DL (0.60-1.10); GLUCOSE 99 MG/DL (70-104); POTASSIUM 4.3 MMOL/L (3.5-5.1); SODIUM 139 MMOL/L (135-145); TOTAL CARBON DIOXIDE 27.5 MMOL/L (24-32); TOTAL PROTEIN 5.6 G/DL (6.4-8.2); eGFR 34 ML/MIN
--- NOTE | 2019-04-26 01:35 | NUR ---
PCT assisted patient to the bathroom
--- NOTE | 2019-04-26 02:02 | NUR ---
Noticed redness to left eye, upon asking patient about it he verbalized "sometimes my blood vessels break in the eye, that's probably it." Will continue to monitor.
[2019-04-26] MEDS ORDERED: potassium Cl 20 mEq SR tablet PO PRN ×3 (02:10→23:40)
[2019-04-26] MEDS ORDERED: magnesium 4gm in 100ml NS 100 ML IV PRN ×2 (02:10→23:40)
[2019-04-26] MEDS ORDERED: potassium CL 10mEq/100ml bag 100 ML IV PRN ×3 (02:10→23:40)
[2019-04-26] MEDS ORDERED: mag hydrox/Alum hydrox/simeth 30ml oral suspension PO PRN (02:10)
[2019-04-26] MEDS ORDERED: ondansetron/PF 4mg/2ml inj IV PRN (02:10)
[2019-04-26] MEDS ORDERED: magnesium Cl slow-release 64mg tablet PO PRN (02:10)
[2019-04-26] MEDS ORDERED: magnesium 2GM in 50ml NS 50 ML IV PRN ×2 (02:10→23:40)
[2019-04-26] MEDS ORDERED: acetaminophen 325mg tablet PO PRN ×2 (02:10)
--- NOTE | 2019-04-26 02:44 | NUR ---
Patient verbalized that he doesnt "think there's any changes to his current medication list." Stated his will be bringing the medication list in the morning.
[2019-04-26] MEDS ORDERED: bisacodyl 5mg tablet.DR PO SCH (04:25)
[2019-04-26] MEDS ORDERED: simethicone 80mg chew tab PO PRN (04:25)
[2019-04-26] MEDS ORDERED: bisacodyl 5mg tablet.DR PO ONE (04:25)
--- NOTE | 2019-04-26 05:45 | NUR ---
Patient in room PCU 3012. I have received report from Christy FITZGERALD and had the opportunity to ask questions and assume patient care.
--- NOTE | 2019-04-26 06:06 | NUR ---
Patient is on the unit in room 3012B, comfortable and sleeping. Will continue to monitor.
--- NOTE | 2019-04-26 06:31 | NUR ---
Problems reprioritized. Patient report given, questions answered & plan of care reviewed with Jina FITZGERALD.
--- NOTE | 2019-04-26 06:32 | NUR ---
Patient in room PCU 3012B. I have received report from Sylvie FITZGERALD and had the opportunity to ask questions and assume patient care.
[2019-04-26] MEDS: sucralfate 1 gm tablet PO SCH ×4 (07:23→20:15)
[2019-04-26] MEDS: levoTHYROXINE 75mcg tablet PO SCH (07:23)
[2019-04-26] MEDS: lisinopril 5mg tablet PO SCH (07:23)
[2019-04-26] MEDS: furosemide 20MG tablet PO SCH (07:24)
[2019-04-26] MEDS: IBRUTINIB PO SCH (07:24)
[2019-04-26] MEDS: pantoprazole 40mg Tablet.DR PO SCH (07:24)
[2019-04-26] MEDS: cycloSPORINE 0.05% ophthalmic emulsion EACHEYE SCH ×2 (07:24→20:17)
[2019-04-26] MEDS: heparin, porcine 5000 units/ml vial SQ SCH ×2 (07:24→20:16)
[2019-04-26] MEDS ORDERED: K and/or MAG REPLACEMENT MC SCH (08:00)
[2019-04-26] MEDS ORDERED: heparin 10,000 units/1 ML INJ ONE ×2 (12:00)
[2019-04-26] MEDS ORDERED: calcium chloride 100 MG/1 ML inj IV ONE (12:00)
[2019-04-26] MEDS ORDERED: LIDOcaine 2% (20 mg/ml) 5ml cardiac syringe ONE (12:00)
[2019-04-26] MEDS ORDERED: albumin (human) 25% 100 ML IV solution IV ONE (12:00)
[2019-04-26] MEDS ORDERED: heparin 1,000 units/ml 10ml inj ONE (12:00)
[2019-04-26] MEDS ORDERED: MAGNESIUM SULFATE 4 MEQ/ML (5gm/10ml) injection ONE (12:00)
[2019-04-26] MEDS ORDERED: aminocaproic acid 250 MG/1 ML inj. ONE (12:00)
[2019-04-26] MEDS ORDERED: papaverine 30 mg/ml 2ml inj. ONE (12:00)
[2019-04-26] MEDS ORDERED: methylPREDNISolone sod. succ. 500mg inj ONE (12:00)
[2019-04-26] MEDS ORDERED: sodium bicarbonate (8.4%) 1 mEq/ml syringe ONE (12:00)
[2019-04-26] MEDS ORDERED: phenylephrine 10mg/ml inj. ONE (12:00)
[2019-04-26] MEDS ORDERED: potassium Cl 2 mEq/ml inj IV ONE (12:00)
[2019-04-26] MEDS ORDERED: NUT.TX.IMPAIRED DIGEST FXN (Ensure Clear) 237 ML PO ONE (15:05)
[2019-04-26] MEDS ORDERED: gabapentin 400mg capsule PO ONE (15:05)
[2019-04-26] MEDS ORDERED: MESSAGE TO NURSING PO ONE ×4 (15:05)
[2019-04-26] MEDS ORDERED: cefazolin/dext.iso 2gm/100ml 100 ML IV ONE (15:30)
--- NOTE | 2019-04-26 15:30 | NUR ---
Report called to Eduarda FITZGERALD in ACCE unit. All questions answered. Patient transferred to ACCE unit via wheelchair, accompanied by nurse and family, and all belongings sent with patient.
--- NOTE | 2019-04-26 15:35 | NUR ---
PAGED RT FOR ABG "ABG NEEDED FOR PRE-OP PATIENT GOING INTO 310. THANK YOU, PAR[place] ZAYAS [id number]
--- NOTE | 2019-04-26 15:35 | NUR ---
PAGED PT "PT EVAL NEEDED FOR PRE-OP PATIENT GOING INTO 310. THANK YOU, [place] ZAYAS [id number]"
[2019-04-26 16:54] LABS: PARTIAL THROMBOPLASTIN TIME 49 SECONDS (22-32)
[2019-04-26 17:00] LABS: ABG HCO3 24.3 mmol/L (22.0-26.0); ABG OXYGEN SATURATION 92.5 % (95-98); ABG PCO2 (T) 30.4 mmHg (35.0-45.0); ABG PO2 (T) 61.9 mmHg (83-108); FMetHb 0.2 % (0.3-1.12); FO2Hb 92.3 % (94-100); RESPIRATORY RATE (OBSERVED) 20 b/min; TOTAL HEMOGLOBIN 11.9 G/dl (14.0-17.9)
[2019-04-26 17:00] LABS: CLARITY,URINE CLEAR (Clear); COLOR,URINE YELLOW (Yellow); GLUCOSE, URINE NEGATIVE (Neg); KETONES,URINE NEGATIVE (Neg); LEUKOCYTE ESTERASE ,URINE NEGATIVE (Neg); NITRITES, URINE NEGATIVE (Neg); OCCULT BLOOD,URINE NEGATIVE (Neg); PH,URINE 8.5 (4.8-8.0); PROTEIN,URINE NEGATIVE (Neg); UROBILINOGEN,URINE 0.2 E.U/dL (0.2-1.0)
[2019-04-26 17:03] LABS: UA COLLECTION TYPE NON-SPECIFIED
--- NOTE | 2019-04-26 18:21 | NUR ---
Problems reprioritized. Patient report given, questions answered & plan of care reviewed with LIA GROVES.
--- NOTE | 2019-04-26 18:28 | NUR ---
Patient in room MED 310. I have received report from Eduarda FITZGERALD and had the opportunity to ask questions and assume patient care.
--- NOTE | 2019-04-26 20:50 | NUR ---
Dr. Francois notified that patient had a bowel movement that was dark in color and requested order for stool sample which he gave the order. Will obtain next time patient has a BM.
[2019-04-26] MEDS: mupirocin 2% ointment 22GM NS SCH (22:08)
[2019-04-26] MEDS ORDERED: amiodarone 150mg/dext, iso-os 100 ML IV ONE (22:55)
[2019-04-26] MEDS ORDERED: magnesium 2GM in 50ml NS 50 ML IV ONE (23:00)
[2019-04-26] MEDS ORDERED: amiodarone/D5 360MG/200ML BAG 200 ML IV SCH (23:15)
[2019-04-26] MEDS: amiodarone/D5 360MG/200ML BAG 200 ML IV SCH (23:20)
--- NOTE | 2019-04-26 23:43 | NUR ---
Patient went into a rapid rate into around the 150's going back and forth from SVT and then the V-tach. Patient said that he did not feel any irregularities with his heart and denied any chest pain. He was however slightly nauseas and diaphoretic. His blood pressure 90's over 50's which is his baseline. Oxygen sats remain normal on room air. Dr. Francois notified and came to bedside. STAT EKG obtained, Amiodarone loading dose given, MG 2 grams IV hung. This rate was sustained for roughly half an hour and once loading dose of Amiodarone had been infused he went back into sinus rhythm with a bundle branch block as he was before this episode. Pt continuing on Amiodarone maintenance dose. Dr. Dan also notified via telephone since he will be taking patient for surgery tomorrow for a pericardial window. Sy recommended to get the food bagging machine operator involved to do a consult with the possibility of transferring patient to critical care. Dr. Francois spoke with August CROCHET BEADER for consult and August came to evaluate patient. We will not transfer at this time due to patient's rate stabilizing but will continue to monitor if it does become necessary to transfer patient. Labs pending. Patient states feeling fine and will rest at this time.
[2019-04-26 23:53] LABS: ALBUMIN 2.6 G/DL (3.4-5.0); ANION GAP 11 (8-16); BLOOD UREA NITROGEN 28 MG/DL (7-18); BUN/CREATININE RATIO 18.1 (5.4-32.0); CALCIUM 7.9 MG/DL (8.5-10.1); CHLORIDE 102 MMOL/L (99-107); CREATININE 1.55 MG/DL (0.60-1.10); GLUCOSE 111 MG/DL (70-104); MAGNESIUM 2.4 MG/DL (1.5-2.4); POTASSIUM 4.2 MMOL/L (3.5-5.1); SODIUM 137 MMOL/L (135-145); TOTAL CARBON DIOXIDE 24.5 MMOL/L (24-32); TROPONIN I 0.14 NG/ML (0.0-0.05); eGFR 43 ML/MIN
[2019-04-27] VITALS (23 sets, daily range): BP systolic 85–113; BP diastolic 47–93
--- NOTE | 2019-04-27 04:26 | NUR ---
Report called to Danya FITZGERALD in the ICU who will be receiving patient upon transfer to the unit. Patient is getting prepped for surgery right now and after he has been shaved and bathed he will be transferred.
--- NOTE | 2019-04-27 04:55 | NUR ---
Patient transferred to the ICU at this time.
--- NOTE | 2019-04-27 05:00 | NUR ---
arrived via [place] with rn and pt neonatal intensive care nurse--ambulated to bed without problem--pt currently on amio drip at 1.0 mg--denies pain or sob at this time--physical assessment within normal limits--pt npo at this time for surgery later--was prepped before coming downstairs vss pt offers no c/o's
[2019-04-27] MEDS: amiodarone/D5 360MG/200ML BAG 200 ML IV SCH ×3 (05:49→17:27)
[2019-04-27 06:19] LABS: HEMOGLOBIN 10.8 g/dl (14.0-17.9); NEUTROPHILS % (AUTO) 58.8 % (42-75); RED CELL DISTRIBUTION WIDTH 16.6 % (11.5-14.5)
[2019-04-27 06:21] LABS: BASOPHILS % (AUTO) 0.3 % (0-1); EOSINOPHILS % (AUTO) 0.7 % (0-6); HEMATOCRIT 32.3 % (42.0-52.0); LYMPHOCYTES # (AUTO) 1.5 X10'3 (1.1-4.8); LYMPHOCYTES % (AUTO) 22.7 % (21-51); MEAN CORPUSCULAR HGB CONC 33.4 g/dL (33.0-36.5); MEAN CORPUSCULAR VOLUME 95.6 FL (78-98); MEAN PLATELET VOLUME 10.4 FL (7.4-10.4); MONOCYTES # (AUTO) 1.2 X10'3 (0-0.9); MONOCYTES % (AUTO) 17.5 % (2-12); PLATELET COUNT 113 X10'3 (140-440); RED BLOOD COUNT 3.38 X10'6 (4.70-6.10); WHITE BLOOD COUNT 6.8 X10'3 (4.5-11.0)
[2019-04-27 06:27] LABS: ALBUMIN 2.7 G/DL (3.4-5.0); ANION GAP 11 (8-16); BLOOD UREA NITROGEN 27 MG/DL (7-18); BUN/CREATININE RATIO 18.2 (5.4-32.0); CALCIUM 8.1 MG/DL (8.5-10.1); CHLORIDE 102 MMOL/L (99-107); CREATININE 1.48 MG/DL (0.60-1.10); GLUCOSE 97 MG/DL (70-104); MAGNESIUM 2.7 MG/DL (1.5-2.4); SODIUM 138 MMOL/L (135-145); TOTAL CARBON DIOXIDE 25.3 MMOL/L (24-32); eGFR 45 ML/MIN
[2019-04-27] MEDS: sucralfate 1 gm tablet PO SCH ×4 (07:00→20:22)
[2019-04-27] MEDS: lisinopril 5mg tablet PO SCH (07:50)
[2019-04-27] MEDS: heparin, porcine 5000 units/ml vial SQ SCH ×2 (07:50→20:00)
[2019-04-27] MEDS: furosemide 20MG tablet PO SCH (07:50)
[2019-04-27] MEDS: atorvastatin 10mg tablet PO SCH (07:50)
[2019-04-27] MEDS: pantoprazole 40mg Tablet.DR PO SCH ×2 (07:50→20:23)
[2019-04-27] MEDS: IBRUTINIB PO SCH (07:58)
[2019-04-27] MEDS: cycloSPORINE 0.05% ophthalmic emulsion EACHEYE SCH ×2 (08:00→20:23)
[2019-04-27] MEDS: mupirocin 2% ointment 22GM NS SCH ×2 (08:00→20:23)
[2019-04-27 08:33] LABS: TOTAL CELLS COUNTED 100
[2019-04-27 08:34] LABS: ANISOCYTOSIS 1+; PLATELET ESTIMATE DECREASED
[2019-04-27] MEDS: levoTHYROXINE 75mcg tablet PO SCH (09:00)
[2019-04-27] MEDS ORDERED: MESSAGE TO NURSING PO ONE (10:00)
[2019-04-27] MEDS ORDERED: albumin (Human) 5% 250ml 250 ML IV ONE (10:30)
[2019-04-27] MEDS ORDERED: BUPIVAcaine/PF 2.5 mg/ml (0.25%) 30ml vial ONE (13:07)
[2019-04-27] MEDS ORDERED: fentaNYL/PF 50MCG/1 ML 2ML syringe ONE (13:20)
[2019-04-27] MEDS ORDERED: ketamine 50mg/5ml syringe ONE (13:21)
[2019-04-27] MEDS ORDERED: midazolam 2 mg/2 ml injection ONE (13:21)
[2019-04-27] MEDS ORDERED: ondansetron/PF 4mg/2ml inj IV PRN (15:00)
[2019-04-27] MEDS ORDERED: HYDROcodone/acetaminophen 10/325mg tab PO PRN ×2 (15:00)
[2019-04-27] MEDS ORDERED: metoclopramide 5 mg/ml inj IV PRN (15:00)
[2019-04-27] MEDS ORDERED: magnesium hydroxide 30ml (MOM) UD suspension PO PRN (15:00)
[2019-04-27] MEDS ORDERED: morphine 4 MG/ML inj SYRINge IV PRN ×2 (15:00)
[2019-04-27] MEDS ORDERED: albuterol 2.5 MG/3 ML nebule NEB PRN (15:00)
[2019-04-27] MEDS ORDERED: ceFAZolin 1000mg inj ONE (15:24)
[2019-04-27] MEDS ORDERED: phenylephrine 10mg/ml inj. ONE (15:24)
[2019-04-27] MEDS ORDERED: rocuronium 10mg/ml inj IV ONE (15:24)
[2019-04-27] MEDS ORDERED: neostigmine methylsulfate 1 MG/ML 10ml vial ONE (15:24)
[2019-04-27] MEDS ORDERED: glycopyrrolate 0.2mg/ml inj ONE (15:24)
[2019-04-27 16:14] LABS: ALBUMIN 2.5 G/DL (3.4-5.0); ANION GAP 11 (8-16); BLOOD UREA NITROGEN 24 MG/DL (7-18); BUN/CREATININE RATIO 17.5 (5.4-32.0); CALCIUM 8.2 MG/DL (8.5-10.1); CHLORIDE 103 MMOL/L (99-107); CREATININE 1.37 MG/DL (0.60-1.10); GLUCOSE 115 MG/DL (70-104); POTASSIUM 4.8 MMOL/L (3.5-5.1); SODIUM 136 MMOL/L (135-145); TOTAL CARBON DIOXIDE 22.5 MMOL/L (24-32); eGFR 49 ML/MIN
[2019-04-27 16:15] LABS: BASOPHILS % (AUTO) 0.3 % (0-1); EOSINOPHILS % (AUTO) 0.3 % (0-6); HEMATOCRIT 29.5 % (42.0-52.0); HEMOGLOBIN 9.7 g/dl (14.0-17.9); LYMPHOCYTES # (AUTO) 0.7 X10'3 (1.1-4.8); LYMPHOCYTES % (AUTO) 9.3 % (21-51); MEAN CORPUSCULAR HEMOGLOBIN 31.6 PG (27.0-31.0); MEAN CORPUSCULAR VOLUME 95.8 FL (78-98); MEAN PLATELET VOLUME 10.1 FL (7.4-10.4); MONOCYTES # (AUTO) 0.9 X10'3 (0-0.9); NEUTROPHILS # (AUTO) 6.1 X10'3 (1.8-7.7); NEUTROPHILS % (AUTO) 78.1 % (42-75); PLATELET COUNT 103 X10'3 (140-440); RED BLOOD COUNT 3.08 X10'6 (4.70-6.10); RED CELL DISTRIBUTION WIDTH 16.7 % (11.5-14.5); WHITE BLOOD COUNT 7.8 X10'3 (4.5-11.0)
[2019-04-27] MEDS: ceFAZolin inj. 1,000 MG in dextrose 5%-water 50ml 50 ML IV SCH ×2 (16:17→18:51)
[2019-04-27] MEDS ORDERED: normal saline 1000ml 1,000 ML IV ONE (18:45)
[2019-04-27] MEDS: NORepinephrine 8mg/ 250ml NS 250 ML IV SCH (18:50)
[2019-04-27] MEDS: docusate sod 100mg capsule PO SCH (20:22)
[2019-04-27] MEDS: gabapentin 300mg capsule PO SCH (20:23)
[2019-04-27] MEDS ORDERED: normal saline 500ml IV soln 500 ML IV ONE (23:55)
[2019-04-28] VITALS (24 sets, daily range): BP systolic 82–111; BP diastolic 36–65
[2019-04-28 03:31] LABS: HEMOGLOBIN 10.5 g/dl (14.0-17.9); LYMPHOCYTES # (AUTO) 1.2 X10'3 (1.1-4.8); MONOCYTES # (AUTO) 1.5 X10'3 (0-0.9); NEUTROPHILS # (AUTO) 7.3 X10'3 (1.8-7.7)
[2019-04-28] MEDS: amiodarone/D5 360MG/200ML BAG 200 ML IV SCH ×3 (03:31→15:23)
[2019-04-28 03:35] LABS: BASOPHILS % (AUTO) 0.1 % (0-1); EOSINOPHILS % (AUTO) 0 % (0-6); HEMATOCRIT 31.1 % (42.0-52.0); LYMPHOCYTES % (AUTO) 12.1 % (21-51); MEAN CORPUSCULAR HEMOGLOBIN 31.8 PG (27.0-31.0); MEAN CORPUSCULAR HGB CONC 33.7 g/dL (33.0-36.5); MEAN CORPUSCULAR VOLUME 94.3 FL (78-98); MEAN PLATELET VOLUME 10.1 FL (7.4-10.4); MONOCYTES % (AUTO) 14.9 % (2-12); NEUTROPHILS % (AUTO) 72.9 % (42-75); PLATELET COUNT 153 X10'3 (140-440); RED BLOOD COUNT 3.29 X10'6 (4.70-6.10); RED CELL DISTRIBUTION WIDTH 16.3 % (11.5-14.5)
[2019-04-28 03:40] LABS: ALBUMIN 2.4 G/DL (3.4-5.0); ANION GAP 8 (8-16); BLOOD UREA NITROGEN 25 MG/DL (7-18); BUN/CREATININE RATIO 17.1 (5.4-32.0); CALCIUM 7.5 MG/DL (8.5-10.1); CHLORIDE 104 MMOL/L (99-107); CREATININE 1.46 MG/DL (0.60-1.10); GLUCOSE 112 MG/DL (70-104); MAGNESIUM 2.2 MG/DL (1.5-2.4); POTASSIUM 4.9 MMOL/L (3.5-5.1); SODIUM 137 MMOL/L (135-145); TOTAL CARBON DIOXIDE 24.6 MMOL/L (24-32); eGFR 46 ML/MIN
[2019-04-28 04:08] LABS: TOTAL CELLS COUNTED 100
[2019-04-28 04:09] LABS: ANISOCYTOSIS 1+; LARGE PLATELETS FEW; PLATELET ESTIMATE NORMAL
[2019-04-28] MEDS: pantoprazole 40mg Tablet.DR PO SCH ×2 (07:59→19:53)
[2019-04-28] MEDS: docusate sod 100mg capsule PO SCH ×2 (08:00→19:53)
[2019-04-28] MEDS: atorvastatin 10mg tablet PO SCH (08:00)
[2019-04-28] MEDS: levoTHYROXINE 75mcg tablet PO SCH (08:00)
[2019-04-28] MEDS: sucralfate 1 gm tablet PO SCH ×4 (08:00→19:53)
[2019-04-28] MEDS: furosemide 20MG tablet PO SCH (08:00)
[2019-04-28] MEDS: lisinopril 5mg tablet PO SCH (08:00)
[2019-04-28] MEDS: IBRUTINIB PO SCH (08:00)
[2019-04-28] MEDS: gabapentin 300mg capsule PO SCH ×2 (08:00→19:53)
[2019-04-28] MEDS: heparin, porcine 5000 units/ml vial SQ SCH ×2 (08:01→19:54)
[2019-04-28] MEDS: cycloSPORINE 0.05% ophthalmic emulsion EACHEYE SCH ×2 (08:01→19:53)
[2019-04-28] MEDS: mupirocin 2% ointment 22GM NS SCH (08:07)
[2019-04-28] MEDS: aspirin 81mg tab.chew PO SCH (08:13)
[2019-04-28] MEDS ORDERED: normal saline 1000ml 1,000 ML IV ONE ×3 (10:00→12:40)
[2019-04-28] MEDS: NORepinephrine 8mg/ 250ml NS 250 ML IV SCH (13:18)
[2019-04-28 15:50] LABS: OXYGEN SATURATION (MIXED VEN) 71.2 % (60-80); PO2 MIXED VENOUS (TEMP COR) 39.4 mmHg (35-46)
[2019-04-29] VITALS (24 sets, daily range): BP systolic 80–112; BP diastolic 38–66
[2019-04-29] MEDS: NORepinephrine 8mg/ 250ml NS 250 ML IV SCH ×2 (00:44→11:58)
--- NOTE | 2019-04-29 01:03 | NUR ---
Patient in room ICU 2038. I have received report from Elder Ortiz RN and had the opportunity to ask questions and assume patient care.
[2019-04-29] MEDS ORDERED: albumin (human) 25% 100 ML IV solution IV ONE (02:05)
[2019-04-29] MEDS: amiodarone/D5 360MG/200ML BAG 200 ML IV SCH (03:18)
--- NOTE | 2019-04-29 04:42 | NUR ---
I have reviewed the previous nurse's assessment and agree with the findings.
[2019-04-29 05:15] LABS: BASOPHILS % (AUTO) 0.3 % (0-1); EOSINOPHILS % (AUTO) 0.3 % (0-6); HEMATOCRIT 29.2 % (42.0-52.0); HEMOGLOBIN 9.6 g/dl (14.0-17.9); LYMPHOCYTES # (AUTO) 1.1 X10'3 (1.1-4.8); LYMPHOCYTES % (AUTO) 13.3 % (21-51); MEAN CORPUSCULAR HEMOGLOBIN 31.4 PG (27.0-31.0); MEAN CORPUSCULAR HGB CONC 32.8 g/dL (33.0-36.5); MEAN CORPUSCULAR VOLUME 95.7 FL (78-98); MEAN PLATELET VOLUME 9.8 FL (7.4-10.4); MONOCYTES # (AUTO) 1.7 X10'3 (0-0.9); NEUTROPHILS # (AUTO) 5.6 X10'3 (1.8-7.7); NEUTROPHILS % (AUTO) 66.1 % (42-75); PLATELET COUNT 182 X10'3 (140-440); RED BLOOD COUNT 3.05 X10'6 (4.70-6.10); RED CELL DISTRIBUTION WIDTH 16.5 % (11.5-14.5); WHITE BLOOD COUNT 8.5 X10'3 (4.5-11.0)
[2019-04-29 05:21] LABS: ALBUMIN 2.6 G/DL (3.4-5.0); ANION GAP 11 (8-16); BLOOD UREA NITROGEN 26 MG/DL (7-18); BUN/CREATININE RATIO 18.3 (5.4-32.0); CALCIUM 7.2 MG/DL (8.5-10.1); CHLORIDE 105 MMOL/L (99-107); CREATININE 1.42 MG/DL (0.60-1.10); GLUCOSE 121 MG/DL (70-104); MAGNESIUM 2.1 MG/DL (1.5-2.4); POTASSIUM 5.1 MMOL/L (3.5-5.1); SODIUM 137 MMOL/L (135-145); TOTAL CARBON DIOXIDE 20.9 MMOL/L (24-32); eGFR 47 ML/MIN
--- NOTE | 2019-04-29 06:32 | NUR ---
Problems reprioritized. Patient report given, questions answered & plan of care reviewed with Valorie Kerr RN.
[2019-04-29 06:36] LABS: ANISOCYTOSIS 1+; PLATELET ESTIMATE NORMAL
[2019-04-29 06:37] LABS: BURR CELLS 1+; SCHISTOCYTES FEW
[2019-04-29] MEDS: sucralfate 1 gm tablet PO SCH ×4 (07:25→21:34)
[2019-04-29] MEDS: levoTHYROXINE 75mcg tablet PO SCH (07:25)
[2019-04-29] MEDS: lisinopril 5mg tablet PO SCH (08:00)
[2019-04-29] MEDS: gabapentin 300mg capsule PO SCH (08:00)
[2019-04-29] MEDS: furosemide 20MG tablet PO SCH (08:00)
[2019-04-29] MEDS: atorvastatin 10mg tablet PO SCH (10:36)
[2019-04-29] MEDS: docusate sod 100mg capsule PO SCH ×2 (10:36→19:34)
[2019-04-29] MEDS: pantoprazole 40mg Tablet.DR PO SCH ×2 (10:36→19:34)
[2019-04-29] MEDS: heparin, porcine 5000 units/ml vial SQ SCH ×2 (10:37→19:35)
[2019-04-29] MEDS: cycloSPORINE 0.05% ophthalmic emulsion EACHEYE SCH ×2 (10:37→19:35)
[2019-04-29] MEDS: IBRUTINIB PO SCH (10:37)
[2019-04-29] MEDS: amiodarone 200mg tablet PO SCH ×2 (14:33→19:34)
[2019-04-29] MEDS: normal saline 1000ml 1,000 ML IV SCH (14:33)
--- NOTE | 2019-04-29 15:59 | NUR ---
Patient stayed in NSR with 1st degree block all day compared to in and out a-fib yesterday. OOB to chair with PT this AM. Unable to ambulate d/t hypotension and dizziness (unable to get OOB yesterday d/t N/V,dizziness, hypotension, arrythmia). Increased GUNNER output with movement (Sy and Radha aware), which slowed down afterward. Patient continues on levophed (currently infusing at 5 mcg/hr---it was infusing at 14 mcg/hr at beginning of shift) and will keep titrating down as tolerated to keep MAP >60. After lunch, transferred patient back to bed. CVP decreased to 4 from 8. Radha made aware and started continuos NS at 100 ml/hr. Amiodarone drip stopped this afternoon and transitioned to PO amio. Dr. Galeano came in at 1430 to speak with patient and family. Angiogram planned for tomorrow at 11AM. Patient feeling better today and has been more awake/talkative.
[2019-04-30] VITALS (24 sets, daily range): BP systolic 87–137; BP diastolic 36–70
[2019-04-30] MEDS: normal saline 1000ml 1,000 ML IV SCH ×2 (00:09→08:59)
[2019-04-30 03:45] LABS: ALBUMIN 2.2 G/DL (3.4-5.0); ANION GAP 7 (8-16); BLOOD UREA NITROGEN 22 MG/DL (7-18); BUN/CREATININE RATIO 17.5 (5.4-32.0); CALCIUM 7.2 MG/DL (8.5-10.1); CHLORIDE 108 MMOL/L (99-107); CREATININE 1.26 MG/DL (0.60-1.10); GLUCOSE 101 MG/DL (70-104); MAGNESIUM 1.9 MG/DL (1.5-2.4); POTASSIUM 4.7 MMOL/L (3.5-5.1); SODIUM 138 MMOL/L (135-145); TOTAL CARBON DIOXIDE 23.1 MMOL/L (24-32); eGFR 54 ML/MIN
[2019-04-30 03:49] LABS: BASOPHILS % (AUTO) 0.2 % (0-1); EOSINOPHILS # (AUTO) 0.1 X10'3 (0-0.9); EOSINOPHILS % (AUTO) 0.9 % (0-6); HEMATOCRIT 26.4 % (42.0-52.0); HEMOGLOBIN 8.7 g/dl (14.0-17.9); LYMPHOCYTES % (AUTO) 14.2 % (21-51); MEAN CORPUSCULAR HEMOGLOBIN 31.4 PG (27.0-31.0); MEAN CORPUSCULAR HGB CONC 32.9 g/dL (33.0-36.5); MEAN CORPUSCULAR VOLUME 95.5 FL (78-98); MEAN PLATELET VOLUME 9.6 FL (7.4-10.4); MONOCYTES # (AUTO) 1.2 X10'3 (0-0.9); MONOCYTES % (AUTO) 17.3 % (2-12); NEUTROPHILS # (AUTO) 4.7 X10'3 (1.8-7.7); NEUTROPHILS % (AUTO) 67.4 % (42-75); PLATELET COUNT 150 X10'3 (140-440); RED BLOOD COUNT 2.76 X10'6 (4.70-6.10); RED CELL DISTRIBUTION WIDTH 16.7 % (11.5-14.5)
--- NOTE | 2019-04-30 06:30 | NUR ---
Patient in room ICU 2038. I have received report from cassie and had the opportunity to ask questions and assume patient care.
[2019-04-30 06:59] LABS: ANISOCYTOSIS 1+; LARGE PLATELETS FEW; PLATELET ESTIMATE NORMAL; POIKILOCYTOSIS FEW
[2019-04-30] MEDS: sucralfate 1 gm tablet PO SCH ×4 (07:00→20:04)
[2019-04-30] MEDS: lisinopril 5mg tablet PO SCH (08:00)
[2019-04-30] MEDS: pantoprazole 40mg Tablet.DR PO SCH ×2 (08:00→20:04)
[2019-04-30] MEDS: atorvastatin 10mg tablet PO SCH (08:00)
[2019-04-30] MEDS: furosemide 20MG tablet PO SCH (08:00)
[2019-04-30] MEDS: docusate sod 100mg capsule PO SCH ×2 (08:00→20:04)
[2019-04-30] MEDS: heparin, porcine 5000 units/ml vial SQ SCH (08:00)
[2019-04-30] MEDS: amiodarone 200mg tablet PO SCH ×2 (08:56→20:04)
[2019-04-30] MEDS: IBRUTINIB PO SCH (08:57)
[2019-04-30] MEDS: cycloSPORINE 0.05% ophthalmic emulsion EACHEYE SCH ×2 (08:57→20:05)
[2019-04-30] MEDS: levoTHYROXINE 75mcg tablet PO SCH (08:57)
[2019-04-30] MEDS: NORepinephrine 8mg/ 250ml NS 250 ML IV SCH (08:59)
--- NOTE | 2019-04-30 11:42 | NUR ---
pt sleeping off and on, awaiting cath today. visiting with family. denies pain. titrating levo up to keep map above 60.
[2019-04-30] MEDS ORDERED: LIDOcaine 1% (10mg/ml)w/preservative injection 20ml MDV ONE (12:47)
[2019-04-30] MEDS ORDERED: fentaNYL/PF 50MCG/1 ML 2ML syringe ONE (12:47)
[2019-04-30] MEDS ORDERED: midazolam 2 mg/2 ml injection ONE (12:47)
[2019-04-30] MEDS ORDERED: iohexol 350 MG/ML 50ML vial IV ONE ×2 (12:48→13:16)
[2019-04-30] MEDS ORDERED: iohexol 350MG/ML 100ml bottle IV ONE (12:48)
--- NOTE | 2019-04-30 13:00 | NUR ---
to director labor standards by bed
[2019-04-30 15:36] LABS: ISTAT HGB ART 8.8 g/dl (14.0-18.0); ISTAT Hct ART 26 %PCV (42-52); ISTAT O2 SATURATION ARTERIAL 93 % (95-98); ISTAT SOURCE ART
[2019-04-30 15:36] LABS: ISTAT Hct MIX 26 %PCV (42-52); ISTAT O2 SATURATION MIX VENOUS 63 % (60-80); ISTAT SOURCE MIX
[2019-04-30] MEDS ORDERED: ondansetron/PF 4mg/2ml inj IV PRN (16:30)
[2019-04-30] MEDS ORDERED: proCHLORperazine 10 MG/2 ml inj IV PRN (16:35)
[2019-04-30] MEDS ORDERED: OXAZEpam 15mg capsule PO PRN (16:35)
[2019-04-30] MEDS ORDERED: nitroGLYCERIN 0.4mg SUBLingual tab SL PRN (16:35)
[2019-04-30] MEDS ORDERED: sodium chloride 0.45% 1,000 ML IV ONE (17:25)
[2019-04-30] MEDS: magnesium hydroxide 30ml (MOM) UD suspension PO PRN (20:04)
[2019-05-01] VITALS (24 sets, daily range): BP systolic 109–140; BP diastolic 53–83
[2019-05-01 03:49] LABS: BASOPHILS % (AUTO) 0.3 % (0-1); EOSINOPHILS % (AUTO) 0.5 % (0-6); HEMATOCRIT 28.7 % (42.0-52.0); HEMOGLOBIN 9.4 g/dl (14.0-17.9); LYMPHOCYTES % (AUTO) 14.4 % (21-51); MEAN CORPUSCULAR HGB CONC 32.8 g/dL (33.0-36.5); MEAN CORPUSCULAR VOLUME 94.7 FL (78-98); MEAN PLATELET VOLUME 9.3 FL (7.4-10.4); NEUTROPHILS % (AUTO) 70.8 % (42-75); PLATELET COUNT 150 X10'3 (140-440); RED BLOOD COUNT 3.03 X10'6 (4.70-6.10); RED CELL DISTRIBUTION WIDTH 16.3 % (11.5-14.5); WHITE BLOOD COUNT 7.1 X10'3 (4.5-11.0)
[2019-05-01 03:51] LABS: ALBUMIN 2.2 G/DL (3.4-5.0); ANION GAP 7 (8-16); BLOOD UREA NITROGEN 22 MG/DL (7-18); CALCIUM 7.6 MG/DL (8.5-10.1); CHLORIDE 107 MMOL/L (99-107); CREATININE 1.05 MG/DL (0.60-1.10); GLUCOSE 88 MG/DL (70-104); POTASSIUM 4.7 MMOL/L (3.5-5.1); SODIUM 138 MMOL/L (135-145); eGFR 67 ML/MIN
[2019-05-01] MEDS: furosemide 20MG tablet PO SCH (08:00)
[2019-05-01] MEDS: lisinopril 5mg tablet PO SCH (08:00)
[2019-05-01] MEDS: pantoprazole 40mg Tablet.DR PO SCH ×2 (08:05→20:18)
[2019-05-01] MEDS: atorvastatin 10mg tablet PO SCH (08:05)
[2019-05-01] MEDS: amiodarone 200mg tablet PO SCH ×2 (08:05→20:18)
[2019-05-01] MEDS: sucralfate 1 gm tablet PO SCH ×4 (08:06→20:18)
[2019-05-01] MEDS: docusate sod 100mg capsule PO SCH ×2 (08:06→20:18)
[2019-05-01] MEDS: levoTHYROXINE 75mcg tablet PO SCH (08:06)
[2019-05-01] MEDS: cycloSPORINE 0.05% ophthalmic emulsion EACHEYE SCH ×2 (08:07→20:19)
[2019-05-01] MEDS: IBRUTINIB PO SCH (08:08)
[2019-05-01] MEDS: normal saline 1000ml 1,000 ML IV SCH (10:15)
--- NOTE | 2019-05-01 11:30 | NUR ---
Initial: Pt s/p pericardial window admit w/ pericardial effusion. PO 100% heart healthy meals meeting needs. LBM 04/27 receiving colace. No nutrition concerns at this time. Will continue to monitor. Rec: 1. continue heart healthy diet 2. routine bowel care 3. wt per rx Addendum: 05/01/19 at [address] Amended: Links added.
[2019-05-01] MEDS ORDERED: MESSAGE TO NURSING PO ONE ×4 (13:45)
[2019-05-01] MEDS ORDERED: dextrose 50%-water 50ml dispensing syringe IV PRN (13:45)
[2019-05-01] MEDS ORDERED: ringers solution, lacted 1,000 ML IV ONE (15:39)
[2019-05-01 16:31] LABS: ABG BASE EXCESS -3.7 mmol/L (-2.0-3.0); ABG HCO3 18.7 mmol/L (22.0-26.0); ABG OXYGEN SATURATION 92.5 % (95-98); ABG PCO2 (T) 25.8 mmHg (35.0-45.0); ABG PH (T) 7.477 (7.350-7.450); ABG PO2 (T) 62.2 mmHg (83-108); FCOHb 0.3 % (0.5-1.5); FLOW 2 L/min; FMetHb 0.3 % (0.3-1.12); FO2Hb 91.9 % (94-100); RESPIRATORY RATE (OBSERVED) 18 b/min; TOTAL HEMOGLOBIN 10.7 G/dl (14.0-17.9)
[2019-05-01 16:48] LABS: CLARITY,URINE CLEAR (Clear); COLOR,URINE STRAW (Yellow); GLUCOSE, URINE NEGATIVE (Neg); KETONES,URINE NEGATIVE (Neg); LEUKOCYTE ESTERASE ,URINE NEGATIVE (Neg); NITRITES, URINE NEGATIVE (Neg); OCCULT BLOOD,URINE LARGE (Neg); PROTEIN,URINE NEGATIVE (Neg); UROBILINOGEN,URINE 0.2 E.U/dL (0.2-1.0)
[2019-05-01 16:56] LABS: UA COLLECTION TYPE NON-SPECIFIED
[2019-05-01 16:57] LABS: BACTERIA,URINE NONE SEEN /HPF (Neg); MUCUS STRANDS NONE SEEN /LPF (Neg); RBC,URINE 20-50 /HPF (0-2); SQUAMOUS EPITHELIAL CELL,UR NONE SEEN /LPF (FEW); WBC,URINE 0-4 /HPF (0-4)
[2019-05-01 16:58] LABS: COARSE GRANULAR CAST 0-3 /LPF (NEGATIVE)
--- NOTE | 2019-05-01 18:30 | NUR ---
Patient in room ICU 2038. I have received report from Valorie FITZGERALD and had the opportunity to ask questions and assume patient care.
--- NOTE | 2019-05-01 19:34 | NUR ---
Pt currently lying flat in bed, due to Fem and Venous sheaths. He is watching TV, after just finishing his meal. He is alert and oriented, but does seem to doze off easily. Pt did show some signs of confusion this AM prior to Day shift, and during report it was expressed that the confusion would come and go throughout the day. As of this moment, the confusion seems to be absent, but will continue to monitor the patient and re-orient him to where he is and what the purpose of him being here is, as needed.
[2019-05-01] MEDS: magnesium hydroxide 30ml (MOM) UD suspension PO PRN (20:18)
[2019-05-02] VITALS (35 sets, daily range): BP systolic 88–135; BP diastolic 41–91
[2019-05-02 03:37] LABS: BASOPHILS % (AUTO) 0.4 % (0-1); EOSINOPHILS # (AUTO) 0.1 X10'3 (0-0.9); EOSINOPHILS % (AUTO) 0.7 % (0-6); HEMATOCRIT 29.8 % (42.0-52.0); HEMOGLOBIN 9.8 g/dl (14.0-17.9); LYMPHOCYTES # (AUTO) 1.1 X10'3 (1.1-4.8); LYMPHOCYTES % (AUTO) 15.4 % (21-51); MEAN CORPUSCULAR VOLUME 93.9 FL (78-98); MEAN PLATELET VOLUME 9.7 FL (7.4-10.4); MONOCYTES # (AUTO) 1.2 X10'3 (0-0.9); MONOCYTES % (AUTO) 16.3 % (2-12); NEUTROPHILS # (AUTO) 4.8 X10'3 (1.8-7.7); NEUTROPHILS % (AUTO) 67.2 % (42-75); PLATELET COUNT 173 X10'3 (140-440); RED BLOOD COUNT 3.17 X10'6 (4.70-6.10); RED CELL DISTRIBUTION WIDTH 16.4 % (11.5-14.5); WHITE BLOOD COUNT 7.1 X10'3 (4.5-11.0)
[2019-05-02 03:45] LABS: ALBUMIN 2.3 G/DL (3.4-5.0); ANION GAP 9 (8-16); BLOOD UREA NITROGEN 20 MG/DL (7-18); BUN/CREATININE RATIO 17.9 (5.4-32.0); CALCIUM 7.8 MG/DL (8.5-10.1); CHLORIDE 106 MMOL/L (99-107); CREATININE 1.12 MG/DL (0.60-1.10); GLUCOSE 85 MG/DL (70-104); MAGNESIUM 2.1 MG/DL (1.5-2.4); POTASSIUM 4.7 MMOL/L (3.5-5.1); SODIUM 138 MMOL/L (135-145); TOTAL CARBON DIOXIDE 23.3 MMOL/L (24-32); eGFR 62 ML/MIN
[2019-05-02 03:49] LABS: PARTIAL THROMBOPLASTIN TIME 42 SECONDS (22-32)
[2019-05-02] MEDS ORDERED: insulin glargine (Lantus) pen - multi-dose SQ PRN (05:30)
[2019-05-02] MEDS ORDERED: mupirocin 2% nasal ointment 1gm UD NS SCH (05:30)
[2019-05-02] MEDS ORDERED: cefazolin/dext.iso 2gm/100ml 100 ML IV ONE (05:30)
[2019-05-02] MEDS ORDERED: NUT.TX.IMPAIRED DIGEST FXN (Ensure Clear) 237 ML PO ONE (05:30)
[2019-05-02] MEDS ORDERED: gabapentin 400mg capsule PO ONE (05:30)
[2019-05-02] MEDS ORDERED: vancomycin/NS 1 GM ADD-VANTAGE 250 ML IV ONE (05:30)
[2019-05-02] MEDS: insulin regular, human 100 UNIT in normal saline 100ml IV soln 100 ML IV SCH ×2 (05:46)
--- NOTE | 2019-05-02 06:24 | NUR ---
Problems reprioritized. Patient report given, questions answered & plan of care reviewed with Emil FITZGERALD.
[2019-05-02] MEDS: metoprolol tartrate 12.5mg (1/2 tablet) PO SCH ×2 (06:28→08:00)
[2019-05-02] MEDS ORDERED: papaverine 30 mg/ml 2ml inj. IA ONE (06:30)
[2019-05-02] MEDS ORDERED: LORazepam 2 mg/ml vial IV ONE (06:30)
[2019-05-02] MEDS ORDERED: heparin 10,000 units/1 ML INJ IR ONE (06:30)
[2019-05-02] MEDS: pantoprazole 40mg Tablet.DR PO SCH (06:38)
[2019-05-02] MEDS ORDERED: fentaNYL /PF 50mcg/ml 5ml ampule ONE ×3 (06:50→08:11)
[2019-05-02] MEDS ORDERED: etomidate 2mg/ml inj. ONE (06:55)
[2019-05-02] MEDS ORDERED: rocuronium 10mg/ml inj IV ONE ×3 (06:55→19:01)
[2019-05-02 07:10] LABS: ANISOCYTOSIS 1+; LARGE PLATELETS FEW; PLATELET ESTIMATE NORMAL; TOTAL CELLS COUNTED 100
[2019-05-02] MEDS: aspirin 81mg tab.chew PO SCH (08:00)
[2019-05-02] MEDS: amiodarone 200mg tablet PO SCH (08:00)
[2019-05-02] MEDS: atorvastatin 10mg tablet PO SCH (08:00)
[2019-05-02] MEDS: furosemide 20MG tablet PO SCH (08:00)
[2019-05-02] MEDS: levoTHYROXINE 75mcg tablet PO SCH (08:00)
[2019-05-02] MEDS: lisinopril 5mg tablet PO SCH (08:00)
[2019-05-02] MEDS: cycloSPORINE 0.05% ophthalmic emulsion EACHEYE SCH ×2 (08:00→20:00)
[2019-05-02] MEDS: IBRUTINIB PO SCH (08:00)
[2019-05-02] MEDS: docusate sod 100mg capsule PO SCH ×2 (08:00→20:00)
[2019-05-02 08:05] LABS: ABG BASE EXCESS -3.4 mmol/L (-2.0-3.0); ABG HCO3 21.1 mmol/L (22.0-26.0); ABG OXYGEN SATURATION 99.4 % (95-98); ABG PCO2 35.5 mmHg (35.0-45.0); ABG PH 7.391 (7.350-7.450); CL (ABG) 103 mmol/L (99-107); FCOHb 0.7 % (0.5-1.5); FMetHb 0.1 % (0.3-1.12); FO2Hb 98.6 % (94-100); GLUCOSE (ABG) 104 mg/dl (70-104); K (ABG) 4.5 mmol/L (3.3-5.1); NA (ABG) 131 mmol/L (135-145); TOTAL HEMOGLOBIN 10.2 G/dl (14.0-17.9)
[2019-05-02] MEDS: normal saline 1000ml 1,000 ML IV SCH (08:08)
[2019-05-02] MEDS: sucralfate 1 gm tablet PO SCH ×2 (08:08→12:00)
[2019-05-02 08:56] LABS: ABG HCO3 18.9 mmol/L (22.0-26.0); ABG OXYGEN SATURATION 89.2 % (95-98); ABG PCO2 34.4 mmHg (35.0-45.0); ABG PH 7.357 (7.350-7.450); ABG PO2 62.4 mmHg (60.0-100.0); CL (ABG) 104 mmol/L (99-107); FCOHb 1.5 % (0.5-1.5); FMetHb 0.3 % (0.3-1.12); FO2Hb 87.6 % (94-100); GLUCOSE (ABG) 116 mg/dl (70-104); IONIZED CA (ABG) 1.08 mmol/L (1.03-1.32); K (ABG) 4.3 mmol/L (3.3-5.1); NA (ABG) 133 mmol/L (135-145); TOTAL HEMOGLOBIN 8.7 G/dl (14.0-17.9)
[2019-05-02 09:25] LABS: ABG BASE EXCESS VENOUS -5.9 mmol/L; ABG HCO3 VENOUS 19.9 mmol/L; ABG PCO2 VENOUS 40.2 mmHg; ABG PO2 VENOUS 51.8 mmHg; CL (ABG) 101 mmol/L (99-107); FCOHb VENOUS 1.2 %; FMetHb VENOUS 0.6 %; FO2Hb VENOUS 82.2 %; GLUCOSE (ABG) 162 mg/dl (70-104); IONIZED CA (ABG) 0.95 mmol/L (1.03-1.32); NA (ABG) 128 mmol/L (135-145); TOTAL HEMOGLOBIN 7.7 G/dl (14.0-17.9)
[2019-05-02 09:31] LABS: ABG BASE EXCESS -4.6 mmol/L (-2.0-3.0); ABG HCO3 20.1 mmol/L (22.0-26.0); ABG OXYGEN SATURATION 99.6 % (95-98); ABG PCO2 35.4 mmHg (35.0-45.0); ABG PH 7.373 (7.350-7.450); ABG PO2 440.3 mmHg (60.0-100.0); CL (ABG) 102 mmol/L (99-107); FCOHb 1.6 % (0.5-1.5); FMetHb 0.7 % (0.3-1.12); FO2Hb 97.3 % (94-100); GLUCOSE (ABG) 157 mg/dl (70-104); IONIZED CA (ABG) 0.97 mmol/L (1.03-1.32); K (ABG) 5.7 mmol/L (3.3-5.1); NA (ABG) 128 mmol/L (135-145); TOTAL HEMOGLOBIN 7.7 G/dl (14.0-17.9)
[2019-05-02] MEDS ORDERED: ROPIVAcaine 0.5% (5mg/ml) 30ml vial ONE (09:50)
[2019-05-02 09:55] LABS: ABG BASE EXCESS -4.5 mmol/L (-2.0-3.0); ABG HCO3 21.6 mmol/L (22.0-26.0); ABG OXYGEN SATURATION 99.4 % (95-98); ABG PCO2 44.9 mmHg (35.0-45.0); ABG PH 7.301 (7.350-7.450); ABG PO2 462.7 mmHg (60.0-100.0); CL (ABG) 101 mmol/L (99-107); FCOHb 0.7 % (0.5-1.5); FMetHb 0.5 % (0.3-1.12); FO2Hb 98.2 % (94-100); GLUCOSE (ABG) 154 mg/dl (70-104); IONIZED CA (ABG) 1.03 mmol/L (1.03-1.32); NA (ABG) 131 mmol/L (135-145); TOTAL HEMOGLOBIN 8.1 G/dl (14.0-17.9)
[2019-05-02] MEDS ORDERED: MESSAGE TO NURSING PO ONE (10:00)
[2019-05-02 10:25] LABS: ABG BASE EXCESS -1.7 mmol/L (-2.0-3.0); ABG HCO3 23.2 mmol/L (22.0-26.0); ABG OXYGEN SATURATION 99.5 % (95-98); ABG PCO2 39.4 mmHg (35.0-45.0); ABG PH 7.387 (7.350-7.450); ABG PO2 386.1 mmHg (60.0-100.0); CL (ABG) 102 mmol/L (99-107); FCOHb 1.3 % (0.5-1.5); FMetHb 0.6 % (0.3-1.12); FO2Hb 97.6 % (94-100); GLUCOSE (ABG) 189 mg/dl (70-104); IONIZED CA (ABG) 0.97 mmol/L (1.03-1.32); NA (ABG) 130 mmol/L (135-145); TOTAL HEMOGLOBIN 7.3 G/dl (14.0-17.9)
[2019-05-02] MEDS ORDERED: phenylephrine 10mg/ml inj. ONE (10:44)
[2019-05-02] MEDS ORDERED: albumin (Human) 5% 250ml 250 ML IV ONE ×5 (10:44→20:19)
[2019-05-02 10:56] LABS: ABG BASE EXCESS -2.7 mmol/L (-2.0-3.0); ABG OXYGEN SATURATION 99.4 % (95-98); ABG PCO2 36.9 mmHg (35.0-45.0); ABG PH 7.393 (7.350-7.450); ABG PO2 350.7 mmHg (60.0-100.0); CL (ABG) 103 mmol/L (99-107); FCOHb 1.2 % (0.5-1.5); FMetHb 0.7 % (0.3-1.12); FO2Hb 97.5 % (94-100); GLUCOSE (ABG) 188 mg/dl (70-104); IONIZED CA (ABG) 1.26 mmol/L (1.03-1.32); K (ABG) 5.4 mmol/L (3.3-5.1); NA (ABG) 130 mmol/L (135-145)
[2019-05-02 11:31] LABS: ABG BASE EXCESS -4.2 mmol/L (-2.0-3.0); ABG HCO3 19.7 mmol/L (22.0-26.0); ABG OXYGEN SATURATION 99.2 % (95-98); ABG PCO2 30.5 mmHg (35.0-45.0); ABG PH 7.427 (7.350-7.450); ABG PO2 312.2 mmHg (60.0-100.0); CL (ABG) 102 mmol/L (99-107); FMetHb 0.9 % (0.3-1.12); FO2Hb 97.3 % (94-100); GLUCOSE (ABG) 215 mg/dl (70-104); K (ABG) 5.2 mmol/L (3.3-5.1); NA (ABG) 131 mmol/L (135-145); TOTAL HEMOGLOBIN 7.4 G/dl (14.0-17.9)
[2019-05-02 11:56] LABS: ABG HCO3 20.6 mmol/L (22.0-26.0); ABG OXYGEN SATURATION 99.2 % (95-98); ABG PCO2 35.3 mmHg (35.0-45.0); ABG PH 7.385 (7.350-7.450); CL (ABG) 102 mmol/L (99-107); FCOHb 1.1 % (0.5-1.5); FMetHb 0.9 % (0.3-1.12); FO2Hb 97.2 % (94-100); GLUCOSE (ABG) 225 mg/dl (70-104); IONIZED CA (ABG) 0.99 mmol/L (1.03-1.32); K (ABG) 4.9 mmol/L (3.3-5.1); NA (ABG) 132 mmol/L (135-145); TOTAL HEMOGLOBIN 7.2 G/dl (14.0-17.9)
[2019-05-02] MEDS ORDERED: calcium chloride 100 MG/1 ML inj IV ONE ×2 (12:20)
[2019-05-02 12:46] LABS: ABG BASE EXCESS VENOUS -4.4 mmol/L; ABG HCO3 VENOUS 21.6 mmol/L; ABG PCO2 VENOUS 43.3 mmHg; ABG PO2 VENOUS 27.8 mmHg; CL (ABG) 103 mmol/L (99-107); FCOHb VENOUS 0.9 %; FHHb VENOUS 51.9 %; FMetHb VENOUS 0.8 %; FO2Hb VENOUS 46.4 %; GLUCOSE (ABG) 222 mg/dl (70-104); IONIZED CA (ABG) 1.34 mmol/L (1.03-1.32); K (ABG) 4.5 mmol/L (3.3-5.1); NA (ABG) 135 mmol/L (135-145)
[2019-05-02] MEDS ORDERED: nitroGLYCERIN-Tridil 50MG/D5W 250 ML IV PRN (13:33)
[2019-05-02] MEDS ORDERED: niCARDipine-NS 40mg/200ml IVPB 200 ML IV PRN (13:33)
[2019-05-02] MEDS ORDERED: DOPamine 400mg/D5W 250ml 250 ML IV PRN (13:33)
[2019-05-02] MEDS ORDERED: magnesium 2GM in 50ml NS 50 ML IV PRN (13:35)
[2019-05-02] MEDS ORDERED: sodium phosphate inj. 30 MMOL in dextrose 5%-water 250 ML IV PRN (13:35)
[2019-05-02] MEDS ORDERED: normal saline 250ml IV soln 250 ML IV PRN (13:35)
[2019-05-02] MEDS ORDERED: metoclopramide 5 mg/ml inj IV PRN (13:35)
[2019-05-02] MEDS ORDERED: magnesium hydroxide 30ml (MOM) UD suspension PO PRN (13:35)
[2019-05-02] MEDS ORDERED: Neutra Phos packet PO PRN (13:35)
[2019-05-02] MEDS: epiNEPHrine inj 5 MG, calcium chloride inj. 1,000 MG in normal saline 250ml IV soln 250 ML IV SCH (13:35)
[2019-05-02] MEDS ORDERED: potassium Cl 20 mEq SR tablet PO PRN (13:35)
[2019-05-02] MEDS ORDERED: magnesium 4gm in 100ml NS 100 ML IV PRN (13:35)
[2019-05-02] MEDS: insulin regular, human inj. 100 UNITS in normal saline 100ml IV soln 100 ML IV SCH ×2 (13:35)
[2019-05-02] MEDS ORDERED: acetaminophen 325mg tablet PO PRN (13:35)
[2019-05-02] MEDS ORDERED: sodium phosphate inj. 15 MMOL in dextrose 5%-water 150 ML IV PRN (13:35)
[2019-05-02] MEDS ORDERED: ondansetron/PF 4mg/2ml inj IV PRN (13:35)
[2019-05-02] MEDS ORDERED: pantoprazole 40 MG vial IV ONE (13:35)
[2019-05-02] MEDS ORDERED: morphine 4 MG/ML inj SYRINge IV PRN (13:35)
[2019-05-02] MEDS ORDERED: HYDROcodone/acetaminophen 10/325mg tab PO PRN ×2 (13:35)
[2019-05-02] MEDS ORDERED: dextrose 50%-water 50ml dispensing syringe IV PRN (13:35)
--- NOTE | 2019-05-02 13:40 | NUR ---
Received to room 2041, accompanied by Wander Dan and surgical crew. Placed on ventilator, to court recording monitor, arterial line and PA line pressure monitored. Chest tubes to suction at 20 cm. Castillo cath to gravity drainage. Dressings are dry and intact. See assessment record. All vasoactive drugs are infusing via central line.
[2019-05-02 14:05] LABS: BASOPHILS % (AUTO) 0.2 % (0-1); EOSINOPHILS % (AUTO) 0 % (0-6); HEMATOCRIT 29.1 % (42.0-52.0); HEMOGLOBIN 9.6 g/dl (14.0-17.9); LYMPHOCYTES # (AUTO) 1.6 X10'3 (1.1-4.8); LYMPHOCYTES % (AUTO) 8.1 % (21-51); MEAN CORPUSCULAR HEMOGLOBIN 30.1 PG (27.0-31.0); MEAN CORPUSCULAR HGB CONC 32.8 g/dL (33.0-36.5); MEAN CORPUSCULAR VOLUME 91.8 FL (78-98); MEAN PLATELET VOLUME 7.9 FL (7.4-10.4); MONOCYTES # (AUTO) 2.4 X10'3 (0-0.9); NEUTROPHILS # (AUTO) 15.9 X10'3 (1.8-7.7); NEUTROPHILS % (AUTO) 79.7 % (42-75); PLATELET COUNT 101 X10'3 (140-440); RED BLOOD COUNT 3.17 X10'6 (4.70-6.10)
[2019-05-02 14:06] LABS: ABG HCO3 19.5 mmol/L (22.0-26.0); ABG OXYGEN SATURATION 91.8 % (95-98); ABG PCO2 (T) 38.6 mmHg (35.0-45.0); ABG PH (T) 7.322 (7.350-7.450); FCOHb 0.3 % (0.5-1.5); FLOW 40 L/min; FMetHb 0.4 % (0.3-1.12); FO2Hb 91.2 % (94-100); MINUTE VOLUME 10 L/min; PEEP 5 cm H2O; RESPIRATORY RATE 10 b/min; RESPIRATORY RATE (OBSERVED) 22 b/min; TIDAL VOLUME 600 mL; TOTAL HEMOGLOBIN 10.5 G/dl (14.0-17.9)
[2019-05-02 14:18] LABS: ALANINE AMINOTRANSFERASE 22 U/L (12-78); ALBUMIN 2.2 G/DL (3.4-5.0); ALBUMIN/GLOBULIN RATIO 1.6 (1.1-1.5); ALKALINE PHOSPHATASE 28 IU/L (46-116); ANION GAP 14 (8-16); ASPARTATE AMINO TRANSFERASE 54 U/L (10-37); BILIRUBIN,TOTAL 1.3 MG/DL (0.1-1.0); BLOOD UREA NITROGEN 21 MG/DL (7-18); BUN/CREATININE RATIO 16.3 (5.4-32.0); CALCIUM 7.6 MG/DL (8.5-10.1); CHLORIDE 110 MMOL/L (99-107); CREATININE 1.29 MG/DL (0.60-1.10); GLUCOSE 204 MG/DL (70-104); MAGNESIUM 2.4 MG/DL (1.5-2.4); PHOSPHORUS 4.6 MG/DL (2.3-4.5); POTASSIUM 4.3 MMOL/L (3.5-5.1); SODIUM 144 MMOL/L (135-145); TOTAL CARBON DIOXIDE 20.5 MMOL/L (24-32); TOTAL PROTEIN 3.6 G/DL (6.4-8.2); eGFR 53 ML/MIN
[2019-05-02] MEDS ORDERED: desmopressin inj. 20 MCG in normal saline 100ml IV soln 100 ML IV ONE (14:20)
[2019-05-02] MEDS: sodium chloride 0.45% 1,000 ML IV SCH (14:32)
[2019-05-02 14:36] LABS: PARTIAL THROMBOPLASTIN TIME 80 SECONDS (22-32)
[2019-05-02] MEDS: albumin (Human) 5% 250ml 250 ML IV PRN (14:36)
[2019-05-02] MEDS ORDERED: protamine sulf. 10mg/ml inj. IV ONE (14:40)
[2019-05-02 14:43] LABS: TOTAL CELLS COUNTED 100
[2019-05-02 14:44] LABS: PLATELET ESTIMATE DECREASED
[2019-05-02 14:45] LABS: ANISOCYTOSIS 1+
[2019-05-02] MEDS: ipratropium/albuterol 3ml nebule NEB SCH ×3 (15:39→22:51)
--- NOTE | 2019-05-02 16:05 | NUR ---
Called Sy with recent lab values, vitals and CT output. Received order for blood.
[2019-05-02] MEDS: ceFAZolin 1GM/D5W- ADD-VANTAGE 50 ML IV SCH (16:10)
[2019-05-02 16:14] LABS: MEAN CORPUSCULAR HEMOGLOBIN 30.5 PG (27.0-31.0); MEAN CORPUSCULAR HGB CONC 32.9 g/dL (33.0-36.5); MEAN CORPUSCULAR VOLUME 92.5 FL (78-98); PLATELET COUNT 139 X10'3 (140-440); RED BLOOD COUNT 2.15 X10'6 (4.70-6.10); RED CELL DISTRIBUTION WIDTH 16.1 % (11.5-14.5); WHITE BLOOD COUNT 15.9 X10'3 (4.5-11.0)
[2019-05-02 16:17] LABS: HEMOGLOBIN 6.6 g/dl (14.0-17.9)
[2019-05-02 16:18] LABS: HEMATOCRIT 19.9 % (42.0-52.0)
[2019-05-02 16:53] LABS: PARTIAL THROMBOPLASTIN TIME 68 SECONDS (22-32)
--- NOTE | 2019-05-02 16:55 | NUR ---
Called Sy to report vitals and chest tube output. Orders received and followed
[2019-05-02] MEDS ORDERED: NORMAL SALINE IV ONE (17:20)
[2019-05-02] MEDS ORDERED: PHYTONADIONE IV ONE (17:20)
--- NOTE | 2019-05-02 17:25 | NUR ---
Called Sy to report chest tube output. Received orders.
[2019-05-02] MEDS ORDERED: amiodarone/D5 360MG/200ML BAG 200 ML IV ONE (17:35)
[2019-05-02] MEDS: insulin Lispro (HumaLOG) vial - multi-dose SQ SCH (18:00)
[2019-05-02 18:24] LABS: BASOPHILS % (AUTO) 0.1 % (0-1); EOSINOPHILS % (AUTO) 0 % (0-6); LYMPHOCYTES # (AUTO) 0.8 X10'3 (1.1-4.8); LYMPHOCYTES % (AUTO) 5.7 % (21-51); MEAN CORPUSCULAR HEMOGLOBIN 30.8 PG (27.0-31.0); MEAN CORPUSCULAR HGB CONC 33.9 g/dL (33.0-36.5); MEAN CORPUSCULAR VOLUME 90.8 FL (78-98); MEAN PLATELET VOLUME 8.5 FL (7.4-10.4); MONOCYTES # (AUTO) 1.4 X10'3 (0-0.9); MONOCYTES % (AUTO) 9.9 % (2-12); NEUTROPHILS # (AUTO) 11.7 X10'3 (1.8-7.7); NEUTROPHILS % (AUTO) 84.3 % (42-75); PLATELET COUNT 97 X10'3 (140-440); RED BLOOD COUNT 2.23 X10'6 (4.70-6.10); RED CELL DISTRIBUTION WIDTH 15.8 % (11.5-14.5); WHITE BLOOD COUNT 13.9 X10'3 (4.5-11.0)
[2019-05-02] MEDS: amiodarone/D5 360MG/200ML BAG 200 ML IV SCH (18:24)
[2019-05-02 18:26] LABS: HEMATOCRIT 20.3 % (42.0-52.0); HEMOGLOBIN 6.9 g/dl (14.0-17.9)
[2019-05-02 18:34] LABS: ALBUMIN 2.7 G/DL (3.4-5.0); ANION GAP 12 (8-16); BLOOD UREA NITROGEN 23 MG/DL (7-18); BUN/CREATININE RATIO 16.3 (5.4-32.0); CALCIUM 7.5 MG/DL (8.5-10.1); CHLORIDE 111 MMOL/L (99-107); CREATININE 1.41 MG/DL (0.60-1.10); GLUCOSE 162 MG/DL (70-104); MAGNESIUM 2.2 MG/DL (1.5-2.4); PHOSPHORUS 3.4 MG/DL (2.3-4.5); POTASSIUM 4.1 MMOL/L (3.5-5.1); SODIUM 144 MMOL/L (135-145); TOTAL CARBON DIOXIDE 21.4 MMOL/L (24-32); eGFR 48 ML/MIN
[2019-05-02] MEDS ORDERED: midazolam 2 mg/2 ml injection ONE ×2 (18:54→18:55)
[2019-05-02] MEDS ORDERED: fentaNYL/PF 50MCG/1 ML 2ML syringe ONE ×2 (18:55)
[2019-05-02 19:06] LABS: ABG BASE EXCESS -6.4 mmol/L (-2.0-3.0); ABG HCO3 17.5 mmol/L (22.0-26.0); ABG OXYGEN SATURATION 99.2 % (95-98); ABG PCO2 28.7 mmHg (35.0-45.0); ABG PH 7.404 (7.350-7.450); ABG PO2 300.7 mmHg (60.0-100.0); CL (ABG) 105 mmol/L (99-107); FCOHb 0.8 % (0.5-1.5); FMetHb 0.8 % (0.3-1.12); FO2Hb 97.6 % (94-100); GLUCOSE (ABG) 143 mg/dl (70-104); IONIZED CA (ABG) 1.12 mmol/L (1.03-1.32); NA (ABG) 137 mmol/L (135-145); TOTAL HEMOGLOBIN 7.6 G/dl (14.0-17.9)
[2019-05-02] MEDS ORDERED: ceFAZolin 1000mg inj ONE ×2 (19:15)
--- NOTE | 2019-05-02 19:49 | NUR ---
[id number] received report and assumed care of pt. Pt in bed, opens eyes spont, nodes head to yes no questions, plural and mediastinal chest tubes in place, epical drip in place as well as amiodarone, Tridil, Levophed and insulin drip in place all vasoactive medications transfusing via CVL, cardiac out puts obtained, labs sent due to large volume of blood in plural chest tubes, critical lab results reported to dr Dan, Dr dan at bedside, pt taken to OR with Dr. Robin and Or crew on monitor
[2019-05-02] MEDS: mupirocin 2% ointment 22GM NS SCH (20:00)
[2019-05-02 20:03] LABS: BASOPHILS % (AUTO) 0.2 % (0-1); EOSINOPHILS % (AUTO) 0 % (0-6); HEMATOCRIT 24.8 % (42.0-52.0); HEMOGLOBIN 8.1 g/dl (14.0-17.9); LYMPHOCYTES # (AUTO) 0.9 X10'3 (1.1-4.8); LYMPHOCYTES % (AUTO) 7.1 % (21-51); MEAN CORPUSCULAR HEMOGLOBIN 30.4 PG (27.0-31.0); MEAN CORPUSCULAR HGB CONC 32.7 g/dL (33.0-36.5); MEAN CORPUSCULAR VOLUME 92.9 FL (78-98); MEAN PLATELET VOLUME 8.6 FL (7.4-10.4); MONOCYTES # (AUTO) 1.5 X10'3 (0-0.9); MONOCYTES % (AUTO) 11.6 % (2-12); NEUTROPHILS # (AUTO) 10.3 X10'3 (1.8-7.7); NEUTROPHILS % (AUTO) 81.1 % (42-75); PLATELET COUNT 81 X10'3 (140-440); RED BLOOD COUNT 2.67 X10'6 (4.70-6.10); RED CELL DISTRIBUTION WIDTH 15.7 % (11.5-14.5); WHITE BLOOD COUNT 12.7 X10'3 (4.5-11.0)
[2019-05-02 20:41] LABS: PARTIAL THROMBOPLASTIN TIME 48 SECONDS (22-32)
[2019-05-02 20:55] LABS: ABG BASE EXCESS -5.3 mmol/L (-2.0-3.0); ABG HCO3 20.7 mmol/L (22.0-26.0); ABG OXYGEN SATURATION 97.8 % (95-98); ABG PCO2 (T) 41.3 mmHg (35.0-45.0); ABG PH (T) 7.314 (7.350-7.450); ABG PO2 (T) 145.3 mmHg (83-108); FCOHb 0.2 % (0.5-1.5); FMetHb 0.7 % (0.3-1.12); FO2Hb 96.9 % (94-100); MINUTE VOLUME 13 L/min; PATIENT TEMPERATURE 36.3; PEEP 8 cm H2O; RESPIRATORY RATE 10 b/min; RESPIRATORY RATE (OBSERVED) 11 b/min; TIDAL VOLUME 600 mL; TOTAL HEMOGLOBIN 7.7 G/dl (14.0-17.9)
[2019-05-02] MEDS: gabapentin 300mg capsule PO SCH (21:00)
[2019-05-02 21:19] LABS: BASOPHILS % (AUTO) 0.1 % (0-1); EOSINOPHILS % (AUTO) 0 % (0-6); LYMPHOCYTES # (AUTO) 0.8 X10'3 (1.1-4.8); LYMPHOCYTES % (AUTO) 7.3 % (21-51); MEAN CORPUSCULAR HEMOGLOBIN 30.1 PG (27.0-31.0); MEAN CORPUSCULAR HGB CONC 33.2 g/dL (33.0-36.5); MEAN CORPUSCULAR VOLUME 90.7 FL (78-98); MEAN PLATELET VOLUME 8.8 FL (7.4-10.4); NEUTROPHILS # (AUTO) 9.5 X10'3 (1.8-7.7); NEUTROPHILS % (AUTO) 83.6 % (42-75); PLATELET COUNT 79 X10'3 (140-440); RED BLOOD COUNT 2.32 X10'6 (4.70-6.10); RED CELL DISTRIBUTION WIDTH 15.3 % (11.5-14.5); WHITE BLOOD COUNT 11.4 X10'3 (4.5-11.0)
[2019-05-02] MEDS ORDERED: HUMAN PROTHROMBIN COMPLEX PCC IV ONE (21:25)
[2019-05-02] MEDS: vancomycin/NS 1 GM ADD-VANTAGE 250 ML IV SCH (21:26)
[2019-05-02] MEDS: NORepinephrine 8mg/ 250ml NS 250 ML IV PRN (21:29)
[2019-05-02 21:35] LABS: ALANINE AMINOTRANSFERASE 20 U/L (12-78); ALBUMIN 2.3 G/DL (3.4-5.0); ALBUMIN/GLOBULIN RATIO 1.6 (1.1-1.5); ALKALINE PHOSPHATASE 26 IU/L (46-116); ANION GAP 11 (8-16); ASPARTATE AMINO TRANSFERASE 40 U/L (10-37); BILIRUBIN,TOTAL 0.9 MG/DL (0.1-1.0); BLOOD UREA NITROGEN 23 MG/DL (7-18); BUN/CREATININE RATIO 18.4 (5.4-32.0); CALCIUM 7.2 MG/DL (8.5-10.1); CHLORIDE 112 MMOL/L (99-107); CREATININE 1.25 MG/DL (0.60-1.10); GLUCOSE 145 MG/DL (70-104); MAGNESIUM 2.1 MG/DL (1.5-2.4); PARTIAL THROMBOPLASTIN TIME 49 SECONDS (22-32); PHOSPHORUS 4.2 MG/DL (2.3-4.5); POTASSIUM 4.1 MMOL/L (3.5-5.1); SODIUM 144 MMOL/L (135-145); TOTAL CARBON DIOXIDE 20.9 MMOL/L (24-32); TOTAL PROTEIN 3.7 G/DL (6.4-8.2); eGFR 55 ML/MIN
--- NOTE | 2019-05-02 21:38 | NUR ---
spoke to dr Dan regarding pts lab results new orders received to give 1 unit prbc and kcentra. will continue to monitor bleeding.
--- NOTE | 2019-05-02 22:05 | NUR ---
2127 pt back from OR, Dr. Robin at bedside with the OR crew, Dr. Dan at bedside as well. Pt placed on ventilator and monitor, ABG, Cardiac out put and labs obtained. Assessment complete, pt does not respond to verbal commands. Epi-cary, amiodarone, Levophed, vasopressin in place per md orders via CVL. pt is pale and dusky, capillary refill 3 to 4 sec. by Doppler bilat lower extremities. multiple areas of petechia noted, tongue is pale with what appears to be a blister on it. pt is in sinus rhythm, IABP in place at a 1:2 rate.
[2019-05-02 22:51] LABS: ABG BASE EXCESS -4.1 mmol/L (-2.0-3.0); ABG OXYGEN SATURATION 98.4 % (95-98); ABG PCO2 (T) 37.3 mmHg (35.0-45.0); ABG PH (T) 7.365 (7.350-7.450); ABG PO2 (T) 181.9 mmHg (83-108); FCOHb 0.3 % (0.5-1.5); FMetHb 0.4 % (0.3-1.12); FO2Hb 97.7 % (94-100); MINUTE VOLUME 7 L/min; PATIENT TEMPERATURE 36.4; PEEP 8 cm H2O; RESPIRATORY RATE 10 b/min; RESPIRATORY RATE (OBSERVED) 10 b/min; TIDAL VOLUME 600 mL
[2019-05-02] MEDS: potassium Cl 20mEq/100mL bag 100 ML IV PRN ×2 (22:55→23:47)
--- NOTE | 2019-05-02 23:00 | NUR ---
left puple slightly larger then the right. spoke to Dr. Dna no new orders at this time.
[2019-05-03] VITALS (35 sets, daily range): BP systolic 82–126; BP diastolic 49–67
--- NOTE | 2019-05-03 00:15 | NUR ---
pts plural chest tube had 200ml of blood out of it in the last hour labs sent, spoke to Dr. Dan regarding lab results, new orders for blood product parameters and to give 1000 units of kcentra. pt does open his eye but does not follow commands
[2019-05-03] MEDS: vasopressin inj. 20 UNIT in normal saline 100ml IV soln 39 ML IV SCH ×2 (00:34→19:26)
[2019-05-03 00:40] LABS: BASOPHILS % (AUTO) 0.1 % (0-1); EOSINOPHILS % (AUTO) 0 % (0-6); HEMATOCRIT 23.3 % (42.0-52.0); HEMOGLOBIN 7.8 g/dl (14.0-17.9); LYMPHOCYTES % (AUTO) 8.3 % (21-51); MEAN CORPUSCULAR HEMOGLOBIN 30.1 PG (27.0-31.0); MEAN CORPUSCULAR HGB CONC 33.7 g/dL (33.0-36.5); MEAN CORPUSCULAR VOLUME 89.4 FL (78-98); MONOCYTES # (AUTO) 1.6 X10'3 (0-0.9); MONOCYTES % (AUTO) 12.7 % (2-12); NEUTROPHILS # (AUTO) 9.8 X10'3 (1.8-7.7); NEUTROPHILS % (AUTO) 78.9 % (42-75); PLATELET COUNT 66 X10'3 (140-440); RED CELL DISTRIBUTION WIDTH 15.1 % (11.5-14.5); WHITE BLOOD COUNT 12.4 X10'3 (4.5-11.0)
[2019-05-03 00:45] LABS: ALANINE AMINOTRANSFERASE 21 U/L (12-78); ALBUMIN 2.3 G/DL (3.4-5.0); ALBUMIN/GLOBULIN RATIO 1.4 (1.1-1.5); ALKALINE PHOSPHATASE 28 IU/L (46-116); ANION GAP 8 (8-16); ASPARTATE AMINO TRANSFERASE 46 U/L (10-37); BLOOD UREA NITROGEN 24 MG/DL (7-18); BUN/CREATININE RATIO 17.3 (5.4-32.0); CALCIUM 7.5 MG/DL (8.5-10.1); CHLORIDE 113 MMOL/L (99-107); CREATININE 1.39 MG/DL (0.60-1.10); GLUCOSE 108 MG/DL (70-104); MAGNESIUM 2.2 MG/DL (1.5-2.4); PHOSPHORUS 4.9 MG/DL (2.3-4.5); POTASSIUM 5.5 MMOL/L (3.5-5.1); SODIUM 143 MMOL/L (135-145); TOTAL CARBON DIOXIDE 21.6 MMOL/L (24-32); TOTAL PROTEIN 3.9 G/DL (6.4-8.2); eGFR 48 ML/MIN
[2019-05-03 00:46] LABS: PARTIAL THROMBOPLASTIN TIME 39 SECONDS (22-32)
[2019-05-03] MEDS: morphine 4 MG/ML inj SYRINge IV PRN ×4 (01:09→12:41)
[2019-05-03] MEDS ORDERED: HUMAN PROTHROMBIN COMPLEX PCC IV ONE ×2 (01:45→02:05)
[2019-05-03] MEDS: ceFAZolin 1GM/D5W- ADD-VANTAGE 50 ML IV SCH ×3 (02:05→15:33)
[2019-05-03] MEDS: ipratropium/albuterol 3ml nebule NEB SCH ×6 (03:52→23:14)
[2019-05-03] MEDS: insulin regular, human 100 UNIT in normal saline 100ml IV soln 100 ML IV SCH ×4 (04:05→06:04)
[2019-05-03 04:15] LABS: BASOPHILS % (AUTO) 0.2 % (0-1); EOSINOPHILS % (AUTO) 0 % (0-6); LYMPHOCYTES # (AUTO) 1.4 X10'3 (1.1-4.8); LYMPHOCYTES % (AUTO) 7.7 % (21-51); MEAN CORPUSCULAR HEMOGLOBIN 30.3 PG (27.0-31.0); MEAN CORPUSCULAR HGB CONC 33.3 g/dL (33.0-36.5); MEAN CORPUSCULAR VOLUME 90.8 FL (78-98); MEAN PLATELET VOLUME 9.2 FL (7.4-10.4); MONOCYTES # (AUTO) 1.7 X10'3 (0-0.9); MONOCYTES % (AUTO) 9.9 % (2-12); NEUTROPHILS # (AUTO) 14.5 X10'3 (1.8-7.7); NEUTROPHILS % (AUTO) 82.2 % (42-75); PLATELET COUNT 138 X10'3 (140-440); RED CELL DISTRIBUTION WIDTH 15.4 % (11.5-14.5); WHITE BLOOD COUNT 17.6 X10'3 (4.5-11.0)
[2019-05-03 04:17] LABS: HEMOGLOBIN 6.3 g/dl (14.0-17.9)
[2019-05-03 04:26] LABS: PARTIAL THROMBOPLASTIN TIME 36 SECONDS (22-32)
[2019-05-03 04:27] LABS: ALANINE AMINOTRANSFERASE 22 U/L (12-78); ALBUMIN 2.2 G/DL (3.4-5.0); ALBUMIN/GLOBULIN RATIO 1.4 (1.1-1.5); ALKALINE PHOSPHATASE 35 IU/L (46-116); ANION GAP 13 (8-16); ASPARTATE AMINO TRANSFERASE 47 U/L (10-37); BILIRUBIN,TOTAL 0.9 MG/DL (0.1-1.0); BLOOD UREA NITROGEN 29 MG/DL (7-18); BUN/CREATININE RATIO 18.4 (5.4-32.0); CALCIUM 7.6 MG/DL (8.5-10.1); CHLORIDE 110 MMOL/L (99-107); CREATININE 1.58 MG/DL (0.60-1.10); GLUCOSE 162 MG/DL (70-104); MAGNESIUM 2.3 MG/DL (1.5-2.4); PHOSPHORUS 5.4 MG/DL (2.3-4.5); POTASSIUM 5.9 MMOL/L (3.5-5.1); SODIUM 143 MMOL/L (135-145); TOTAL CARBON DIOXIDE 20.3 MMOL/L (24-32); TOTAL PROTEIN 3.8 G/DL (6.4-8.2); eGFR 42 ML/MIN
--- NOTE | 2019-05-03 04:31 | NUR ---
0200 blood transfusion complete no transfusion reaction noted
--- NOTE | 2019-05-03 04:32 | NUR ---
hemiglobin 6.3 hematocrit 19.0 order to transfuse [address]
[2019-05-03] MEDS: amiodarone/D5 360MG/200ML BAG 200 ML IV SCH ×2 (04:36→16:49)
[2019-05-03 05:05] LABS: ABG BASE EXCESS -4.1 mmol/L (-2.0-3.0); ABG HCO3 18.8 mmol/L (22.0-26.0); ABG OXYGEN SATURATION 97.1 % (95-98); ABG PCO2 (T) 26.3 mmHg (35.0-45.0); ABG PH (T) 7.472 (7.350-7.450); ABG PO2 (T) 99.1 mmHg (83-108); FCOHb 0.3 % (0.5-1.5); FMetHb 0.3 % (0.3-1.12); FO2Hb 96.5 % (94-100); MINUTE VOLUME 6 L/min; PATIENT TEMPERATURE 37.3; PEEP 8 cm H2O; RESPIRATORY RATE 10 b/min; RESPIRATORY RATE (OBSERVED) 10 b/min; TIDAL VOLUME 600 mL; TOTAL HEMOGLOBIN 7.5 G/dl (14.0-17.9)
[2019-05-03 05:16] LABS: ACTIVATED CLOTTING TIME 142 SEC (101-148)
[2019-05-03 05:16] LABS: ACTIVATED CLOTTING TIME 159 SEC (101-148)
[2019-05-03 05:16] LABS: ACT @ 1.70 U 323 SEC (193-297); ACT @ 2.84 U 444 SEC (260-420); BASELINE ACT 145 SEC (101-148); PATIENT WEIGHT 65.0k KG
--- NOTE | 2019-05-03 06:30 | NUR ---
Patient in room ICU 2041. I have received report from RAULITO RN and had the opportunity to ask questions and assume patient care.
[2019-05-03] MEDS ORDERED: furosemide 40mg/4ml inj IV ONE ×2 (06:45→19:50)
[2019-05-03] MEDS: NORepinephrine 8mg/ 250ml NS 250 ML IV PRN ×3 (07:08→23:49)
[2019-05-03] MEDS: vancomycin/NS 1 GM ADD-VANTAGE 250 ML IV SCH ×2 (07:08→20:03)
--- NOTE | 2019-05-03 07:32 | NUR ---
Dr Dan at bedside. Aware of current labs, IV med rates and CT output.
[2019-05-03 07:33] LABS: BASOPHILS % (AUTO) 0.1 % (0-1); EOSINOPHILS % (AUTO) 0 % (0-6); HEMATOCRIT 25.1 % (42.0-52.0); HEMOGLOBIN 8.4 g/dl (14.0-17.9); LYMPHOCYTES # (AUTO) 1.7 X10'3 (1.1-4.8); LYMPHOCYTES % (AUTO) 6.1 % (21-51); MEAN CORPUSCULAR HEMOGLOBIN 28.7 PG (27.0-31.0); MEAN CORPUSCULAR HGB CONC 33.5 g/dL (33.0-36.5); MEAN CORPUSCULAR VOLUME 85.8 FL (78-98); MONOCYTES # (AUTO) 3.3 X10'3 (0-0.9); MONOCYTES % (AUTO) 11.6 % (2-12); NEUTROPHILS # (AUTO) 23.5 X10'3 (1.8-7.7); NEUTROPHILS % (AUTO) 82.2 % (42-75); PLATELET COUNT 104 X10'3 (140-440); RED BLOOD COUNT 2.92 X10'6 (4.70-6.10); RED CELL DISTRIBUTION WIDTH 16.3 % (11.5-14.5)
[2019-05-03] MEDS: docusate sod 100mg capsule PO SCH (07:33)
[2019-05-03] MEDS: gabapentin 300mg capsule PO SCH ×2 (07:34→12:39)
[2019-05-03] MEDS: insulin Lispro (HumaLOG) vial - multi-dose SQ SCH ×3 (07:34→16:50)
[2019-05-03] MEDS: IBRUTINIB PO SCH (07:34)
[2019-05-03] MEDS: levoTHYROXINE 75mcg tablet PO SCH (07:34)
[2019-05-03 07:36] LABS: WHITE BLOOD COUNT 28.6 X10'3 (4.5-11.0)
[2019-05-03 07:47] LABS: ALANINE AMINOTRANSFERASE 22 U/L (12-78); ALBUMIN 2.3 G/DL (3.4-5.0); ALBUMIN/GLOBULIN RATIO 1.3 (1.1-1.5); ALKALINE PHOSPHATASE 40 IU/L (46-116); ANION GAP 12 (8-16); ASPARTATE AMINO TRANSFERASE 50 U/L (10-37); BLOOD UREA NITROGEN 30 MG/DL (7-18); BUN/CREATININE RATIO 19.5 (5.4-32.0); CALCIUM 7.6 MG/DL (8.5-10.1); CHLORIDE 112 MMOL/L (99-107); CREATININE 1.54 MG/DL (0.60-1.10); GLUCOSE 88 MG/DL (70-104); POTASSIUM 5.4 MMOL/L (3.5-5.1); SODIUM 144 MMOL/L (135-145); TOTAL CARBON DIOXIDE 20.1 MMOL/L (24-32); TOTAL PROTEIN 4.1 G/DL (6.4-8.2); eGFR 43 ML/MIN
[2019-05-03 07:54] LABS: ANISOCYTOSIS 1+; PLATELET ESTIMATE DECREASED; TOTAL CELLS COUNTED 100
[2019-05-03 07:55] LABS: LARGE PLATELETS FEW
[2019-05-03] MEDS ORDERED: metoprolol tartrate 12.5mg (1/2 tablet) PO SCH (08:00)
[2019-05-03] MEDS ORDERED: aspirin 325mg tablet, delayed-release (Ecotrin) PO SCH (08:00)
[2019-05-03] MEDS ORDERED: atorvastatin 10mg tablet PO SCH (08:00)
[2019-05-03 08:37] LABS: PARTIAL THROMBOPLASTIN TIME 34 SECONDS (22-32)
[2019-05-03] MEDS: cycloSPORINE 0.05% ophthalmic emulsion EACHEYE SCH ×2 (09:00→20:01)
[2019-05-03] MEDS: mupirocin 2% ointment 22GM NS SCH ×2 (09:01→20:07)
[2019-05-03 09:26] LABS: MAGNESIUM 2.3 MG/DL (1.5-2.4); PHOSPHORUS 5.3 MG/DL (2.3-4.5)
[2019-05-03] MEDS: epiNEPHrine inj 5 MG, calcium chloride inj. 1,000 MG in normal saline 250ml IV soln 250 ML IV SCH (09:46)
[2019-05-03] MEDS: albumin (Human) 5% 250ml 250 ML IV PRN ×3 (09:52→21:02)
--- NOTE | 2019-05-03 10:40 | NUR ---
Dr Dan at bedside. Balloon pump and introducer pulled by MD. increased levo & decreased epical per md.
[2019-05-03 11:26] LABS: BASOPHILS % (AUTO) 0.1 % (0-1); EOSINOPHILS % (AUTO) 0 % (0-6); LYMPHOCYTES # (AUTO) 1.2 X10'3 (1.1-4.8); LYMPHOCYTES % (AUTO) 4.4 % (21-51); MEAN CORPUSCULAR HEMOGLOBIN 28.7 PG (27.0-31.0); MEAN CORPUSCULAR HGB CONC 33.4 g/dL (33.0-36.5); MEAN CORPUSCULAR VOLUME 85.8 FL (78-98); MEAN PLATELET VOLUME 9.4 FL (7.4-10.4); MONOCYTES # (AUTO) 2.3 X10'3 (0-0.9); MONOCYTES % (AUTO) 8.1 % (2-12); NEUTROPHILS # (AUTO) 24.4 X10'3 (1.8-7.7); NEUTROPHILS % (AUTO) 87.4 % (42-75); PLATELET COUNT 94 X10'3 (140-440); RED BLOOD COUNT 2.45 X10'6 (4.70-6.10); RED CELL DISTRIBUTION WIDTH 16.8 % (11.5-14.5)
[2019-05-03 11:29] LABS: WHITE BLOOD COUNT 27.9 X10'3 (4.5-11.0)
--- NOTE | 2019-05-03 12:25 | NUR ---
Dr Galeano at bedside.
--- NOTE | 2019-05-03 12:35 | NUR ---
Dr Dan at bedside to check labs, CT output and med rates
[2019-05-03] MEDS: insulin regular, human inj. 100 UNITS in normal saline 100ml IV soln 100 ML IV SCH ×2 (12:40)
--- NOTE | 2019-05-03 12:47 | NUR ---
(R) groin with femstop, no hematoma or bruising noted.
--- NOTE | 2019-05-03 15:18 | NUR ---
Pt opens eyes, nods head to questions, moves hands but not feet. attempts to mouth words. denies pain at this time.
[2019-05-03 15:54] LABS: BASOPHILS # (AUTO) 0.1 X10'3 (0-0.2); BASOPHILS % (AUTO) 0.2 % (0-1); EOSINOPHILS % (AUTO) 0 % (0-6); HEMATOCRIT 24.6 % (42.0-52.0); HEMOGLOBIN 8.1 g/dl (14.0-17.9); LYMPHOCYTES # (AUTO) 1.7 X10'3 (1.1-4.8); LYMPHOCYTES % (AUTO) 5.3 % (21-51); MEAN CORPUSCULAR HEMOGLOBIN 28.5 PG (27.0-31.0); MEAN CORPUSCULAR VOLUME 86.5 FL (78-98); MEAN PLATELET VOLUME 9.1 FL (7.4-10.4); MONOCYTES # (AUTO) 4.7 X10'3 (0-0.9); MONOCYTES % (AUTO) 14.8 % (2-12); NEUTROPHILS # (AUTO) 25.3 X10'3 (1.8-7.7); NEUTROPHILS % (AUTO) 79.7 % (42-75); PLATELET COUNT 75 X10'3 (140-440); RED BLOOD COUNT 2.85 X10'6 (4.70-6.10); RED CELL DISTRIBUTION WIDTH 16.7 % (11.5-14.5)
[2019-05-03 15:56] LABS: WHITE BLOOD COUNT 31.7 X10'3 (4.5-11.0)
--- NOTE | 2019-05-03 16:13 | NUR ---
Dr Dan at bedside to check labs & CT output.
[2019-05-03 16:15] LABS: ALANINE AMINOTRANSFERASE 19 U/L (12-78); ALBUMIN 2.6 G/DL (3.4-5.0); ALBUMIN/GLOBULIN RATIO 1.5 (1.1-1.5); ALKALINE PHOSPHATASE 39 IU/L (46-116); ANION GAP 10 (8-16); ASPARTATE AMINO TRANSFERASE 48 U/L (10-37); BILIRUBIN,TOTAL 0.8 MG/DL (0.1-1.0); BLOOD UREA NITROGEN 35 MG/DL (7-18); BUN/CREATININE RATIO 20.8 (5.4-32.0); CALCIUM 7.6 MG/DL (8.5-10.1); CHLORIDE 112 MMOL/L (99-107); CREATININE 1.68 MG/DL (0.60-1.10); GLUCOSE 101 MG/DL (70-104); MAGNESIUM 2.7 MG/DL (1.5-2.4); PHOSPHORUS 5.7 MG/DL (2.3-4.5); POTASSIUM 5.3 MMOL/L (3.5-5.1); SODIUM 143 MMOL/L (135-145); TOTAL CARBON DIOXIDE 21.3 MMOL/L (24-32); TOTAL PROTEIN 4.3 G/DL (6.4-8.2); eGFR 39 ML/MIN
[2019-05-03 19:25] LABS: ABG BASE EXCESS -6.5 mmol/L (-2.0-3.0); ABG HCO3 16.1 mmol/L (22.0-26.0); ABG OXYGEN SATURATION 80.7 % (95-98); ABG PCO2 (T) 24.2 mmHg (35.0-45.0); ABG PH (T) 7.444 (7.350-7.450); ABG PO2 (T) 44.7 mmHg (83-108); FCOHb 0.2 % (0.5-1.5); FMetHb 0.4 % (0.3-1.12); FO2Hb 80.2 % (94-100); MINUTE VOLUME 11 L/min; PATIENT TEMPERATURE 37.6; PEEP 5 cm H2O; RESPIRATORY RATE 10 b/min; RESPIRATORY RATE (OBSERVED) 10 b/min; TIDAL VOLUME 600 mL; TOTAL HEMOGLOBIN 9.7 G/dl (14.0-17.9)
[2019-05-03] MEDS ORDERED: gabapentin 300mg capsule PO SCH (20:00)
[2019-05-03] MEDS ORDERED: docusate sodium 100mg/10ml UD cup PO SCH (20:30)
[2019-05-03 21:25] LABS: EOSINOPHILS % (AUTO) 0 % (0-6); HEMOGLOBIN 8.9 g/dl (14.0-17.9); LYMPHOCYTES # (AUTO) 1.6 X10'3 (1.1-4.8)
[2019-05-03 21:27] LABS: BASOPHILS % (AUTO) 0 % (0-1); HEMATOCRIT 26.9 % (42.0-52.0); LYMPHOCYTES % (AUTO) 6.8 % (21-51); MEAN CORPUSCULAR HEMOGLOBIN 29.2 PG (27.0-31.0); MEAN CORPUSCULAR HGB CONC 33.2 g/dL (33.0-36.5); MEAN CORPUSCULAR VOLUME 87.8 FL (78-98); MEAN PLATELET VOLUME 10.5 FL (7.4-10.4); MONOCYTES # (AUTO) 1.2 X10'3 (0-0.9); MONOCYTES % (AUTO) 5.1 % (2-12); NEUTROPHILS # (AUTO) 20.1 X10'3 (1.8-7.7); NEUTROPHILS % (AUTO) 88.1 % (42-75); PLATELET COUNT 86 X10'3 (140-440); RED BLOOD COUNT 3.06 X10'6 (4.70-6.10); RED CELL DISTRIBUTION WIDTH 17.2 % (11.5-14.5); WHITE BLOOD COUNT 22.8 X10'3 (4.5-11.0)
[2019-05-03 21:43] LABS: ALANINE AMINOTRANSFERASE 17 U/L (12-78); ALBUMIN 2.4 G/DL (3.4-5.0); ALBUMIN/GLOBULIN RATIO 1.3 (1.1-1.5); ALKALINE PHOSPHATASE 44 IU/L (46-116); ANION GAP 15 (8-16); BILIRUBIN,TOTAL 0.9 MG/DL (0.1-1.0); BLOOD UREA NITROGEN 40 MG/DL (7-18); BUN/CREATININE RATIO 20.5 (5.4-32.0); CALCIUM 7.5 MG/DL (8.5-10.1); CHLORIDE 110 MMOL/L (99-107); CREATININE 1.95 MG/DL (0.60-1.10); GLUCOSE 106 MG/DL (70-104); SODIUM 142 MMOL/L (135-145); TOTAL CARBON DIOXIDE 16.7 MMOL/L (24-32); TOTAL PROTEIN 4.2 G/DL (6.4-8.2); eGFR 33 ML/MIN
[2019-05-03 21:45] LABS: MAGNESIUM 2.8 MG/DL (1.5-2.4)
[2019-05-03 21:48] LABS: ASPARTATE AMINO TRANSFERASE 58 U/L (10-37); PHOSPHORUS 5.8 MG/DL (2.3-4.5); POTASSIUM 5.5 MMOL/L (3.5-5.1)
[2019-05-04] VITALS (12 sets, daily range): BP systolic 42–110; BP diastolic 30–59
[2019-05-04] MEDS: ceFAZolin 1GM/D5W- ADD-VANTAGE 50 ML IV SCH (01:11)
[2019-05-04 02:45] LABS: ABG BASE EXCESS -9.5 mmol/L (-2.0-3.0); ABG HCO3 14.6 mmol/L (22.0-26.0); ABG OXYGEN SATURATION 89.6 % (95-98); ABG PCO2 (T) 27.9 mmHg (35.0-45.0); ABG PH (T) 7.344 (7.350-7.450); FCOHb 0.2 % (0.5-1.5); FMetHb 0.3 % (0.3-1.12); FO2Hb 89.2 % (94-100); MINUTE VOLUME 12 L/min; PATIENT TEMPERATURE 38.5; PEEP 10 cm H2O; RESPIRATORY RATE 10 b/min; RESPIRATORY RATE (OBSERVED) 22 b/min; TIDAL VOLUME 600 mL; TOTAL HEMOGLOBIN 9.1 G/dl (14.0-17.9)
[2019-05-04 02:51] LABS: HEMOGLOBIN 8.2 g/dl (14.0-17.9); MEAN CORPUSCULAR HEMOGLOBIN 28.8 PG (27.0-31.0); MEAN CORPUSCULAR HGB CONC 32.8 g/dL (33.0-36.5); MEAN CORPUSCULAR VOLUME 87.8 FL (78-98); MEAN PLATELET VOLUME 10.5 FL (7.4-10.4); PLATELET COUNT 114 X10'3 (140-440); RED BLOOD COUNT 2.84 X10'6 (4.70-6.10); RED CELL DISTRIBUTION WIDTH 17.2 % (11.5-14.5)
[2019-05-04 02:56] LABS: WHITE BLOOD COUNT 28.2 X10'3 (4.5-11.0)
[2019-05-04 03:06] LABS: ALBUMIN 2.5 G/DL (3.4-5.0); ANION GAP 17 (8-16); BLOOD UREA NITROGEN 45 MG/DL (7-18); BUN/CREATININE RATIO 19.4 (5.4-32.0); CALCIUM 7.5 MG/DL (8.5-10.1); CHLORIDE 110 MMOL/L (99-107); CREATININE 2.32 MG/DL (0.60-1.10); GLUCOSE 118 MG/DL (70-104); MAGNESIUM 2.7 MG/DL (1.5-2.4); PHOSPHORUS 6.1 MG/DL (2.3-4.5); POTASSIUM 5.4 MMOL/L (3.5-5.1); SODIUM 142 MMOL/L (135-145); eGFR 27 ML/MIN
[2019-05-04 03:08] LABS: BANDS% (MANUAL) 11 % (0-10); NEUTROPHILS % (MANUAL) 75 % (42-75); TOTAL CELLS COUNTED 100
[2019-05-04 03:09] LABS: ANISOCYTOSIS 1+; HYPOCHROMASIA 1+; LYMPHOCYTES % (MANUAL) 10 % (21-51); MONOCYTES % (MANUAL) 4 % (2-12); PLATELET ESTIMATE DECREASED; TOXIC VACUOLATION 1+
[2019-05-04 03:10] LABS: LARGE PLATELETS FEW; POLYCHROMASIA FEW
[2019-05-04] MEDS: ipratropium/albuterol 3ml nebule NEB SCH ×2 (03:26→07:42)
[2019-05-04] MEDS: NORepinephrine 8mg/ 250ml NS 250 ML IV PRN ×3 (04:00→10:44)
[2019-05-04] MEDS: sodium chloride 0.45% 1,000 ML IV SCH (04:12)
[2019-05-04] MEDS ORDERED: amiodarone/D5 360MG/200ML BAG 200 ML IV SCH (05:08)
[2019-05-04] MEDS ORDERED: amiodarone 150mg/dext, iso-os 100 ML IV ONE ×2 (05:10)
[2019-05-04] MEDS ORDERED: amiodarone/D5 360MG/200ML BAG 200 ML IV ONE (05:17)
[2019-05-04] MEDS: albumin (Human) 5% 250ml 250 ML IV PRN (05:21)
--- NOTE | 2019-05-04 06:30 | NUR ---
Patient in room ICU 2041. I have received report from LIA Ramirez and had the opportunity to ask questions and assume patient care.
[2019-05-04] MEDS: morphine 4 MG/ML inj SYRINge IV PRN (06:46)
--- NOTE | 2019-05-04 06:50 | NUR ---
Dr. Dan arrived on unit and assessed pt, pt was in a rapid heart rate with widen QRS complex. hypotensive. Dr. Dan cardioverted at bedside. pt converted back to SR briefly before converted back to afib
[2019-05-04] MEDS ORDERED: pantoprazole 40mg Tablet.DR PO SCH (07:30)
[2019-05-04] MEDS: vasopressin inj. 20 UNIT in normal saline 100ml IV soln 39 ML IV SCH (08:08)
[2019-05-04] MEDS ORDERED: methylPREDNISolone sod succ 125mg/2ml vial IV ONE (08:30)
[2019-05-04] MEDS ORDERED: vancomycin/NS 1 GM ADD-VANTAGE 250 ML IV ONE (08:30)
[2019-05-04] MEDS ORDERED: piperacillin/tazo 3.375gm/50ml 50 ML IV SCH (08:36)
[2019-05-04] MEDS: mupirocin 2% ointment 22GM NS SCH (08:56)
--- NOTE | 2019-05-04 09:30 | NUR ---
pts family arrived at bedside, Dr. meier discussed pt condition with family, will be initiating comfort care measure. family agreed with plan of care.
[2019-05-04] MEDS ORDERED: morphine 10mg/ml inj. IV PRN (09:55)
--- NOTE | 2019-05-04 10:00 | NUR ---
WOC attempted to see pt but pt was on Comfort Care with family in room.
[2019-05-04] MEDS ORDERED: midazolam 100mg in NS 100ml 100 ML IV PRN (10:05)
[2019-05-04] MEDS ORDERED: FENTANYL-0.9 % NACL/PF 100 ML IV PRN (10:05)
--- NOTE | 2019-05-04 11:20 | NUR ---
Pt has been made DNR w/ comfort care. [facility] 04/27 colace ordered PRN but not given. Continuing to decline. Will continue to follow per protocol. Rec: 1. routine bowel care Addendum: 05/04/19 at [address] Amended: Links added.
--- NOTE | 2019-05-04 11:30 | NUR ---
RN IS TO DOCUMENT YES TO ALL APPLICABLE AREAS Pronouncement of : 1. Time Physician Notified: Dr. Dan 2. Date of : 05/04/2019 3. Time of : 1130 4. DNR/Withdraw life support documented: Y 5. Monitor strip has been placed on chart: Y 6. Assessment process is of one-minute duration and includes following criteria: a) Patient is unresponsive to all stimuli: Y b) Pupils fixed and non-reactive: Y c) Auscultation of precordium reveals absence of heart tones: Y d) Auscultation of lungs reveals absence of breath sounds: Y e) Absence of blood pressure / all vital signs: Y f) QRS complexes are not present on monitor / EKG strip: Y g) Pacer spikes without capture: n/a 4. Comments:
[2019-05-04 15:09] LABS: TOTAL HEMOGLOBIN 6.7 G/dl (14.0-17.9)
[2019-05-04] MEDS ORDERED: lactobacillus rhamnosus 10,000 MMU CELLS/CAPSULE PO SCH (20:00)
[2019-05-05] MEDS ORDERED: gabapentin 300mg capsule PO SCH (08:00)
== END 2019-05-04 11:30 | disposition expired | DRG 216 ==
LOC: ER 23:15 → OBSVTOIN 04-26 05:12 → PCU 3S 04-26 05:12 → CMPBEDREQ 04-26 05:33 → MED 3N 04-26 15:42 → ICU 2S 04-27 04:50
PROVIDERS: ADMIT Hospitalist; ATTEND Thoracic Surgery (Cardiothoracic Vascular Surgery)
PROC: 0W9D4ZZ Drainage of Pericardial Cavity, Percutaneous Endoscopic Approach (ICD-10-PCS; 2019-04-27)
PROC: 02BN4ZX Excision of Pericardium, Percutaneous Endoscopic Approach, Diagnostic (ICD-10-PCS; principal; 2019-04-27 13:12)
PROC: 4A023N8 Measurement of Cardiac Sampling and Pressure, Bilateral, Percutaneous Approach (ICD-10-PCS; 2019-04-30)
PROC: B3101ZZ Fluoroscopy of Thoracic Aorta using Low Osmolar Contrast (ICD-10-PCS; 2019-04-30)
PROC: B2111ZZ Fluoroscopy of Multiple Coronary Arteries using Low Osmolar Contrast (ICD-10-PCS; 2019-04-30)
PROC: B2151ZZ Fluoroscopy of Left Heart using Low Osmolar Contrast (ICD-10-PCS; 2019-04-30)
PROC: B3111ZZ Fluoroscopy of Right Brachiocephalic-Subclavian Artery using Low Osmolar Contrast (ICD-10-PCS; 2019-04-30)
PROC: B3121ZZ Fluoroscopy of Left Subclavian Artery using Low Osmolar Contrast (ICD-10-PCS; 2019-04-30)
PROC: 02RF08Z Replacement of Aortic Valve with Zooplastic Tissue, Open Approach (ICD-10-PCS; 2019-05-02)
PROC: 021009W Bypass Coronary Artery, One Artery from Aorta with Autologous Venous Tissue, Open Approach (ICD-10-PCS; 2019-05-02)
PROC: 06BQ4ZZ Excision of Left Saphenous Vein, Percutaneous Endoscopic Approach (ICD-10-PCS; 2019-05-02)
PROC: 5A02210 Assistance with Cardiac Output using Balloon Pump, Continuous (ICD-10-PCS; 2019-05-02)
PROC: 02BN0ZX Excision of Pericardium, Open Approach, Diagnostic (ICD-10-PCS; 2019-05-02)
PROC: 0W9C0ZZ Drainage of Mediastinum, Open Approach (ICD-10-PCS; 2019-05-02)
PROC: 30233N1 Transfusion of Nonautologous Red Blood Cells into Peripheral Vein, Percutaneous Approach (ICD-10-PCS; 2019-05-02)
PROC: 30233K1 Transfusion of Nonautologous Frozen Plasma into Peripheral Vein, Percutaneous Approach (ICD-10-PCS; 2019-05-02)
PROC: 30233R1 Transfusion of Nonautologous Platelets into Peripheral Vein, Percutaneous Approach (ICD-10-PCS; 2019-05-02)
PROC: 30233M1 Transfusion of Nonautologous Plasma Cryoprecipitate into Peripheral Vein, Percutaneous Approach (ICD-10-PCS; 2019-05-02)
PROC: B24BZZ4 Ultrasonography of Heart with Aorta, Transesophageal (ICD-10-PCS; 2019-05-02)
PROC: B24BZZ4 Ultrasonography of Heart with Aorta, Transesophageal (ICD-10-PCS; 2019-05-02)
PROC: 02HV33Z Insertion of Infusion Device into Superior Vena Cava, Percutaneous Approach (ICD-10-PCS; 2019-05-02)
PROC: B548ZZA Ultrasonography of Superior Vena Cava, Guidance (ICD-10-PCS; 2019-05-02)
PROC: 4A133B3 Monitoring of Arterial Pressure, Pulmonary, Percutaneous Approach (ICD-10-PCS; 2019-05-02)
PROC: 02HP32Z Insertion of Monitoring Device into Pulmonary Trunk, Percutaneous Approach (ICD-10-PCS; 2019-05-02)
PROC: 5A1221Z Performance of Cardiac Output, Continuous (ICD-10-PCS; 2019-05-02)
PROC: 30233N1 Transfusion of Nonautologous Red Blood Cells into Peripheral Vein, Percutaneous Approach (ICD-10-PCS; 2019-05-03)
PROC: 30233M1 Transfusion of Nonautologous Plasma Cryoprecipitate into Peripheral Vein, Percutaneous Approach (ICD-10-PCS; 2019-05-03)
DX: I30.8 Other forms of acute pericarditis (principal); A41.9 Sepsis, unspecified organism; R65.21 Severe sepsis with septic shock; J96.01 Acute respiratory failure with hypoxia; I21.A1 Myocardial infarction type 2; I50.22 Chronic systolic (congestive) heart failure; I47.1 Supraventricular tachycardia; I13.0 Hypertensive heart and chronic kidney disease with heart failure and stage 1 through stage 4 chronic kidney disease, or unspecified chronic kidney disease; C91.10 Chronic lymphocytic leukemia of B-cell type not having achieved remission; D62 Acute posthemorrhagic anemia; N17.9 Acute kidney failure, unspecified; I43 Cardiomyopathy in diseases classified elsewhere; D68.32 Hemorrhagic disorder due to extrinsic circulating anticoagulants; R04.89 Hemorrhage from other sites in respiratory passages; E87.2 Acidosis; I31.4 Cardiac tamponade; I31.3 Pericardial effusion (noninflammatory); I48.0 Paroxysmal atrial fibrillation; T45.7X5A Adverse effect of anticoagulant antagonists, vitamin K and other coagulants, initial encounter; Y92.238 Other place in hospital as the place of occurrence of the external cause; I50.83 High output heart failure; K59.00 Constipation, unspecified; M47.9 Spondylosis, unspecified; Z51.5 Encounter for palliative care; Z96.611 Presence of right artificial shoulder joint; N18.3 Chronic kidney disease, stage 3 (moderate); I08.3 Combined rheumatic disorders of mitral, aortic and tricuspid valves; Z96.612 Presence of left artificial shoulder joint; I08.0 Rheumatic disorders of both mitral and aortic valves; E78.00 Pure hypercholesterolemia, unspecified; D69.6 Thrombocytopenia, unspecified; I44.7 Left bundle-branch block, unspecified; E78.5 Hyperlipidemia, unspecified; I25.5 Ischemic cardiomyopathy; I70.0 Atherosclerosis of aorta; E03.9 Hypothyroidism, unspecified; I25.10 Atherosclerotic heart disease of native coronary artery without angina pectoris; Z88.8 Allergy status to other drugs, medicaments and biological substances; Z79.899 Other long term (current) drug therapy; Z95.5 Presence of coronary angioplasty implant and graft; Z79.82 Long term (current) use of aspirin; I25.2 Old myocardial infarction
CPT/HCPCS: 0232T; 93312; 93325; 93460; 93567; 99285; 36415; 36600; 71045; 71046; 71250; 74021; 74176; 80048; 80053; 81001; 81003; 82330; 82435; 82803; 82810; 82947; 82948; 83036; 83605; 83735; 84100; 84132; 84145; 84295; 84439; 84443; 84484; 85014; 85018; 85025; 85027; 85347; 85384; 85610; 85730; 86885; 86900; 86901; 86920; 87040; 87070; 87075; 87077; 87081; 87102; 87186; 88108; 88300; 88305; 88312; 93005; 93308; 93880; 93931; 93970; 94002; 94003; 94010; 94640; 94760; 97162; 97530; 99152; 99153; A4215; A4618; A4620; A6258; A6402; A6449; A7000; A7048; C1713; C1725; C1758; C1769; C9113; C9132; G0378; J0171; J0282; J0690; J1644; J1815; J1940; J2001; J2060; J2150; J2250; J2270; J2370; J2405; J2440; J2543; J2597; J2710; J2720; J2795; J2930; J3010; J3370; J3430; J3475; J3480; J3490; J7030; J7040; J7050; J7060; J7120; P9012; P9016; P9035; P9045; P9047; P9059; Q9967